=== PATIENT | male | born 1950 | race Caucasian/White ===

== ENCOUNTER 2018-09-10 00:48 | Observation (INO) ==
[2018-09-10 02:04] LABS: Baso % (Auto) 0.5 % (0.0-2.0); Eos % (Auto) 0.1 % (0.0-4.0); Hematocrit 39.1 % (39.0-51.0); Hemoglobin 13.7 gm/dL (13.0-17.0); Lymph # (Auto) 0.6 th/mm3 (1.0-4.8); Lymph % (Auto) 18.8 % (9.0-44.0); Mean Corpuscular Hemoglobin 31.5 pg (27.0-34.0); Mean Platelet Volume 8.3 fL (7.0-11.0); Mono # (Auto) 0.4 th/mm3 (0.0-0.9); Mono % (Auto) 12.7 % (0.0-8.0); Neut # (Auto) 2.3 th/mm3 (1.8-7.7); Neut % (Auto) 67.9 % (16.0-70.0); Platelet Count 134 th/mm3 (150-450); Red Blood Count 4.34 mil/mm3 (4.50-5.90); Red Cell Distribution Width 13.3 % (11.6-17.2); White Blood Count 3.3 th/mm3 (4.0-11.0)
--- NOTE | 2018-09-10 02:10 | ED ---
HPI General Chief complaint: Weakness Stated complaint: gen weakness Time Seen by Provider: 09/10/18 01:32 Source: patient Mode of arrival: ambulatory Limitations: no limitations History of Present Illness HPI Narrative: This 68-year-old man, presents to the emergency department complaining of generalized weakness. He states he went to bed 2 days ago feeling fine and woke up in severe generalized weakness, try just above the belt of the floor, was [id number] for for several hours, has not been able to effectively move around. Struggles to get to the bathroom. Has had incontinence due to not being able to get to the bathroom. Has a history of diabetes and hypertension. Blood sugars been high. No history of previous similar episodes. Works as a cable placer. Was noted to go to work because of the symptoms. Review of systems positive for some is of breath and chest pain, mild. Related Data Home Medications Medication Instructions Recorded Confirmed lisinopril 20 mg PO DAILY 09/10/18 09/10/18 metformin 500 mg PO BID 09/10/18 09/10/18 Allergies Allergy/AdvReac Type Severity Reaction Status Date / Time No Known Allergies Allergy Mild none Uncoded 09/10/18 01:16 Review of Systems ROS: all other systems reviewed are negative [facility] Medical History Medical History Hypertension (Acute) Type 2 diabetes mellitus (Acute) Surgical History Surgical History H/O hernia repair (Acute) Social History Social History Substance History: No History of Abuse Smoking Status: Former smoker How Often Do You Have a Drink Containing Alcohol: Never Immunization History Tetanus Immunization: Unsure Exam Narrative Exam Narrative: GENERAL: Well-appearing 68-year-old man, no acute distress. SKIN: Focused skin assessment warm/dry. HEAD: Atraumatic. Normocephalic. EYES: Pupils equal and round. No scleral icterus. No injection or drainage. ENT: No nasal bleeding or discharge. Mucous membranes pink and moist. NECK: Trachea midline. No JVD. CARDIOVASCULAR: Regular rate and rhythm. No murmur appreciated. RESPIRATORY: No accessory muscle use. Clear to auscultation. Breath sounds equal bilaterally. GASTROINTESTINAL: Abdomen soft, non-tender, nondistended. Hepatic and splenic margins not palpable. MUSCULOSKELETAL: No obvious deformities. No clubbing. No cyanosis. No edema. NEUROLOGICAL: Awake and alert. No obvious cranial nerve deficits. Marked generalized weakness, all 4 extremities. Diminished reflexes throughout. Normal speech. Course Initial Documented Vital Signs Temperature 99.8 F H 09/10/18 01:16 Pulse Rate 96 H 09/10/18 01:16 Respiratory Rate 20 09/10/18 01:16 Blood Pressure 133/83 09/10/18 01:16 Pulse Oximetry 95 09/10/18 01:16 Last Documented Vital Signs Temperature 99.8 F H 09/10/18 01:16 Pulse Rate 104 H 09/10/18 05:15 Respiratory Rate 16 09/10/18 05:15 Blood Pressure 125/74 09/10/18 05:15 Pulse Oximetry 96 09/10/18 05:15 Medical Decision Making MDM Narrative Medical decision making narrative: 68-year-old man, fairly abrupt onset generalized weakness, etiology is unclear. EMS states he was diaphoretic, all the way in route. Etiology could include electrolyte abnormalities, anemia less likely PE or ACS, less likely spinal infarct or intracerebral disease. Will check labs, EKG, chest x-ray to start. Reassess. Likely admission. Medical Screen Exam Complete: Yes Emergency Medical Condition: Yes Lab Data Lab results reviewed: Yes I reviewed the patient's lab results. Result diagrams: 09/10/18 01:50 09/10/18 01:50 Lab Results 09/10/18 09/10/18 09/10/18 Range/Units 01:50 01:50 01:50 WBC 3.3 L (4.0-11.0) th/mm3 RBC 4.34 L (4.50-5.90) mil/mm3 Hgb 13.7 (13.0-17.0) gm/dL Hct 39.1 (39.0-51.0) % MCV 90.0 (80.0-100.0) fL MCH 31.5 (27.0-34.0) pg MCHC 35.0 (32.0-36.0) % RDW 13.3 (11.6-17.2) % Plt Count 134 L (150-450) th/mm3 MPV 8.3 (7.0-11.0) fL Prelim Diff (Auto) Slide review pending Neut % (Auto) 67.9 (16.0-70.0) % Lymph % (Auto) 18.8 (9.0-44.0) % Metcalfe % (Auto) 12.7 H (0.0-8.0) % Eos % (Auto) 0.1 (0.0-4.0) % Baso % (Auto) 0.5 (0.0-2.0) % Neut # (Auto) 2.3 (1.8-7.7) th/mm3 Lymph # (Auto) 0.6 L (1.0-4.8) th/mm3 Metcalfe # (Auto) 0.4 (0.0-0.9) th/mm3 Eos # (Auto) 0.0 (0.0-0.4) th/mm3 Baso # (Auto) 0.0 (0.0-0.2) th/mm3 WBC Differential Manual diff final Seg Neuts % (Manual) 64 (16-70) % Band Neuts % (Manual) 14 H (0-6) % Lymphocytes % (Manual) 10 (9-44) % Atypical Lymphs % (Man) 8 H (0-0) % Monocytes % (Manual) 4 (0-8) % Abs Neuts (Manual) 2.6 (1.8-7.7) th/mm3 Differential Comment . Platelet Estimate Low L (Normal) Platelet Morphology Normal (Normal) Ovalocytes 1+ H (None) Keratocytes Occ H (None) D-Dimer Quant (PE/DVT) (0.00-0.50) mg/L FEU Sodium 134 L (136-145) meq/L Potassium 3.8 (3.5-5.1) meq/L Chloride 98 (98-107) meq/L Carbon Dioxide 26.3 (21.0-32.0) meq/L Anion Gap 10 (5-15) meq/L BUN 17 (7-18) mg/dL Creatinine 1.42 H (0.60-1.30) mg/dL Estimated GFR 50 L (>89) mL/min Random Glucose 247 H (74-106) mg/dL Calcium 7.1 L* (8.5-10.1) mg/dL Calcium Adj for Albumin 8.5 (8.5-10.1) mg/dL Magnesium 1.8 (1.5-2.5) mg/dL Total Bilirubin 1.2 H (0.2-1.0) mg/dL AST 414 H (15-37) U/L ALT 202 H (12-78) U/L Alkaline Phosphatase 98 (45-117) U/L Total Creatine Kinase 4644 H (39-308) U/L CK-MB (CK-2) 3.9 H (0.5-3.6) ng/mL CK-MB (CK-2) % 0.1 (0.0-4.0) % Troponin I 0.10 H (0.02-0.05) ng/mL Total Protein 6.2 L (6.4-8.2) g/dL Albumin 2.3 L (3.4-5.0) g/dL TSH 6.400 H (0.358-3.740) uIU/mL 09/10/18 Range/Units 02:00 WBC (4.0-11.0) th/mm3 RBC (4.50-5.90) mil/mm3 Hgb (13.0-17.0) gm/dL Hct (39.0-51.0) % MCV (80.0-100.0) fL MCH (27.0-34.0) pg MCHC (32.0-36.0) % RDW (11.6-17.2) % Plt Count (150-450) th/mm3 MPV (7.0-11.0) fL Prelim Diff (Auto) Neut % (Auto) (16.0-70.0) % Lymph % (Auto) (9.0-44.0) % Metcalfe % (Auto) (0.0-8.0) % Eos % (Auto) (0.0-4.0) % Baso % (Auto) (0.0-2.0) % Neut # (Auto) (1.8-7.7) th/mm3 Lymph # (Auto) (1.0-4.8) th/mm3 Metcalfe # (Auto) (0.0-0.9) th/mm3 Eos # (Auto) (0.0-0.4) th/mm3 Baso # (Auto) (0.0-0.2) th/mm3 WBC Differential Seg Neuts % (Manual) (16-70) % Band Neuts % (Manual) (0-6) % Lymphocytes % (Manual) (9-44) % Atypical Lymphs % (Man) (0-0) % Monocytes % (Manual) (0-8) % Abs Neuts (Manual) (1.8-7.7) th/mm3 Differential Comment Platelet Estimate (Normal) Platelet Morphology (Normal) Ovalocytes (None) Keratocytes (None) D-Dimer Quant (PE/DVT) 2.33 H (0.00-0.50) mg/L FEU Sodium (136-145) meq/L Potassium (3.5-5.1) meq/L Chloride (98-107) meq/L Carbon Dioxide (21.0-32.0) meq/L Anion Gap (5-15) meq/L BUN (7-18) mg/dL Creatinine (0.60-1.30) mg/dL Estimated GFR (>89) mL/min Random Glucose (74-106) mg/dL Calcium (8.5-10.1) mg/dL Calcium Adj for Albumin (8.5-10.1) mg/dL Magnesium (1.5-2.5) mg/dL Total Bilirubin (0.2-1.0) mg/dL AST (15-37) U/L ALT (12-78) U/L Alkaline Phosphatase (45-117) U/L Total Creatine Kinase (39-308) U/L CK-MB (CK-2) (0.5-3.6) ng/mL CK-MB (CK-2) % (0.0-4.0) % Troponin I (0.02-0.05) ng/mL Total Protein (6.4-8.2) g/dL Albumin (3.4-5.0) g/dL TSH (0.358-3.740) uIU/mL Imaging Data Radiologist's impression: Chest X-Ray 09/10/18 02:04 CONCLUSION: No acute cardiopulmonary process. Chest CTA 09/10/18 02:56 CONCLUSION: No pulmonary embolus. ECG Data Attestation: I personally reviewed and interpreted this ECG as follows: Interpretation: Sinus tachycardia rate of 106, leftward axis, normal intervals, no definite evidence of acute ischemia. Discharge Plan Discharge Disposition Patient Disposition: ED Admit(ED Internal Use Only) Discharge Order Discharge Orders: ED Use Only Admit Order (Routine); Ordered 09/10/18 Ordered By: Juan Kirkpatrick Physicians Team ED Provider: Juan Kirkpatrick Primary Care Provider: [facility] Attending Provider: Davida Chávez Status ED Status: Admitted Observation Patient
[2018-09-10 02:24] LABS: Albumin 2.3 g/dL (3.4-5.0); Calcium 7.1 mg/dL (8.5-10.1); Carbon Dioxide 26.3 meq/L (21.0-32.0); Magnesium 1.8 mg/dL (1.5-2.5); Potassium 3.8 meq/L (3.5-5.1); Total Protein 6.2 g/dL (6.4-8.2); Troponin I 0.1 ng/mL (0.02-0.05)
[2018-09-10 02:34] LABS: Atypical Lymphs 8 % (0-0); Lymphocytes 10 % (9-44); Monocytes 4 % (0-8)
[2018-09-10 02:35] LABS: Ovalocytes 1+; Platelet Morphology Normal (Normal)
--- NOTE | 2018-09-10 03:30 | CT ---
EXAM DATE: 09/10/2018 3:18 AM EST AGE/SEX: 68 years / Male INDICATIONS: Shortness of breath. CLINICAL DATA: This is the patient's initial encounter. Patient reports that signs and symptoms have been present for 2 days and indicates a pain score of 0/10. MEDICAL/SURGICAL HISTORY: Hypertension. Diabetes. None. RADIATION DOSE: 10.66 CTDI (mGy) COMPARISON: No prior exams available for comparison. TECHNIQUE: Volumetric scanning was performed using a multi-row detector CT scanner during bolus infu samantha of 75 ml Omnipaque 350 (iohexol) nonionic water-soluble contrast as a single exam dose. The alirio a was post processed with a variety of visualization algorithms including full volume maximum intensi ty projection and sliding thin slab reformation. Using automated exposure control and adjustment of t he mA and/or kV according to patient size, radiation dose was kept as low as reasonably achievable to obtain optimal diagnostic quality images. DICOM format image data is available electronically for r eview and comparison. FINDINGS: Pulmonary Arteries: No filling defects are seen in the pulmonary arteries out to the subsegmental ve ssels. The left and right pulmonary arteries are normal in diameter. Lung: No infiltrates seen. Effusion: None. Mediastinum: No evidence of mediastinal or hilar adenopathy. Incidental note is made of an azygos fi ssure. This is a normal variant. Other: The axilla is unremarkable. High-density material seen within the gallbladder likely related to gallstones. There is a minimal hiatal hernia. CONCLUSION: No pulmonary embolus. Electronically signed by: Ricki Mina MD Board Certified Radiologist 09/10/2018 3:29 AM EST
--- NOTE | 2018-09-10 03:31 | XR ---
EXAM DATE: 09/10/2018 3:14 AM EST AGE/SEX: 68 years / Male INDICATIONS: Shortness of breath. CLINICAL DATA: This is the patient's initial encounter. Patient reports that signs and symptoms have been present for 1 day and indicates a pain score of 0/10. MEDICAL/SURGICAL HISTORY: Hypertension. Diabetes. None. [place] [facility] [place] 3D[place]. . FINDINGS: The patient is rotated towards the right. The heart size is normal. The lungs are grossly clear. Ther e is an azygos fissure which is a normal variant. CONCLUSION: No acute cardiopulmonary process. Electronically signed by: Ricki Mina MD Board Certified Radiologist 09/10/2018 3:30 AM EST
[2018-09-10] MEDS ORDERED: Bisacodyl 10 MG Supp RECTAL PRN (04:09)
[2018-09-10] MEDS ORDERED: Dextrose 50% in Water 50 ML Vial IV.PUSH PRN (04:09)
[2018-09-10 04:50] LABS: Thyroid Stimulating Hormone 6.4 uIU/mL (0.358-3.740)
[2018-09-10 05:02] LABS: CKMB Percent 0.1 % (0.0-4.0); Creatine Kinase MB 3.9 ng/mL (0.5-3.6)
[2018-09-10] MEDS: Sod Chloride 0.9% Inj 1,000 ML IV.CONT SCH ×3 (05:15→14:37)
[2018-09-10 05:16] VITALS: RESP 16
[2018-09-10 06:04] LABS: Hepatitis A IgM Antibody Reactive (Nonreactive); Hepatitits B Surface Antigen Nonreactive (Nonreactive)
[2018-09-10 08:54] VITALS: O2SAT 95
[2018-09-10] MEDS ORDERED: Senna/Docusate Sodium 8.6/50 MG Tablet PO SCH (09:00)
[2018-09-10 09:07] LABS: Troponin I 0.11 ng/mL (0.02-0.05)
[2018-09-10 09:19] LABS: CKMB Percent 0.1 % (0.0-4.0); Creatine Kinase MB 2.9 ng/mL (0.5-3.6)
--- NOTE | 2018-09-10 09:51 | ECG ---
Date Performed: 09/10/2018 Time Performed: 01:07:26 PTAGE: 68 years EKG: SINUS TACHYCARDIA WITH OCCASIONAL SUPRAVENTRICULAR PREMATURE COMPLEXES PATTERN CONSISTENT W ITH PULMONARY DISEASE INFERIOR MYOCARDIAL INFARCTION ABNORMAL ECG NO PREVIOUS TRACING DOCTOR: Juan Carl Interpretating Date/Time 09/10/2018 09:49:28
[2018-09-10] MEDS: Insulin NovoLIN Regular Correctional Sugar Inj SQ SCH ×2 (10:04→13:31)
--- NOTE | 2018-09-10 10:21 | ECG ---
Date Performed: 09/10/2018 Time Performed: 08:11:16 PTAGE: 68 years EKG: Sinus rhythm PATTERN CONSISTENT WITH PULMONARY DISEASE INFERIOR MYOCARDIAL INFARCTION ABNORMAL ECG PREVIOUS TRACING : 09/10/2018 01.07 DOCTOR: Juan Carl Interpretating Date/Time 09/10/2018 10:21:15
[2018-09-10 11:45] VITALS: BP 105/71; PULSE 97; TEMP 99.2
--- NOTE | 2018-09-10 13:19 | P.HPIM ---
History of Present Illness Service: Hospitalist Primary Care Physician: [facility] Chief Complaint: Upper and lower ext weakness. History of Present Illness: Mr. Ortiz is a 68-year-old with a history of diabetes mellitus, hypertension who presented to the emergency department on 09/10/2018 due to generalized weakness. He fell on the floor near his bed but was unable to get up. He had incontinence due to the fact that he could not get up. Patient denies any chest pain, shortness of breath, fever or chills. Denies any nausea vomiting or diaphoresis. No changes in bowel or bladder habits. Past medical history: Diabetes mellitus, hypertension, hyperlipidemia Past surgical history: Cataract surgery and hernia surgery. Family history: No family history of heart disease or cancer. Social history: Patient denies using tobacco, alcohol or illicit drugs. Review of Systems Review of Systems: all other systems reviewed are negative [facility] Medical History Medical History Hypertension (Acute) Type 2 diabetes mellitus (Acute) Surgical History Surgical History H/O hernia repair (Acute) Social History Social History Substance History: No History of Abuse Second Hand Smoke Exposure: No Smoking Status: Former smoker Tobacco Type: Cigarettes How Often Do You Have a Drink Containing Alcohol: Never Immunization History Tetanus Immunization: Unsure Medications and Allergies Allergies Allergy/AdvReac Type Severity Reaction Status Date / Time No Known Allergies Allergy Mild none Uncoded 09/10/18 01:16 Home Medications Medication Instructions Recorded Confirmed Type lisinopril 20 mg PO DAILY 09/10/18 09/10/18 History metformin 500 mg PO BID 09/10/18 09/10/18 History Active Medications: Active Medications Al Hydroxide/Mg Hydroxide (Milk Of Magnesia Liq) 30 ml PO Q12H PRN PRN Reason: Mild Constipation Bisacodyl (Dulcolax Supp) 10 mg RECTAL DAILY PRN PRN Reason: SEVERE CONSITIPATION Dextrose (D50w Vial) 50 ml IV.PUSH UNSCH PRN PRN Reason: PER HYPOGLYCEMIA PROTOCOL Glucagon (Glucagon Inj) 1 mg OTHER PRN PRN PRN Reason: for Hypoglycemia Protocol Sodium Chloride (Ns Inj) 1,000 mls @ 100 mls/hr IV.CONT .Q10H [facility] Last Admin: 09/10/18 11:44 Dose: 100 mls/hr Insulin Human Regular (Novolin R Correctional Sugar Inj) 0 units SQ ACHS AND 3AM CADENCE; Protocol Last Admin: 09/10/18 10:04 Dose: 3 units Lactulose (Lactulose Liq) 30 ml PO DAILY PRN PRN Reason: SEVERE CONSITIPATION Ondansetron HCl (Zofran Inj) 4 mg IV.PUSH Q6H PRN PRN Reason: NAUSEA OR VOMITING Senna/Docusate Sodium (Shanel-Colace) 1 tab PO BID [facility] Last Admin: 09/10/18 10:04 Dose: Not Given Sennosides (Senokot) 17.2 mg PO Q12H PRN PRN Reason: Moderate Constipation Sodium Chloride (Ns Flush) 2 ml IV.FLUSH BID [facility] [place] Last Admin: 09/10/18 08:27 Dose: Not Given Sodium Chloride (Ns Flush) 2 ml IV.FLUSH PRN PRN PRN Reason: FLUSH AFTER USING IV ACCESS Physical Exam Vital signs: Last Vital Signs Temp 99.2 F 09/10/18 11:44 Pulse 97 H 09/10/18 11:44 Resp 16 09/10/18 11:44 BP 105/71 09/10/18 11:44 Pulse Ox 95 09/10/18 11:44 Intake & Output 09/08/18 09/09/18 09/10/18 09/11/18 06:59 06:59 06:59 06:59 Intake Total 1000 / 1000 Balance 1000 / 1000 Weight 57.606 kg Narrative: GENERAL: This is a well-nourished, well-developed patient, in no apparent distress. SKIN: No rashes, ecchymoses or lesions. Warm and dry. HEAD: Atraumatic. Normocephalic. No temporal or scalp tenderness. EYES: Pupils equal round and reactive. No injection or drainage. ENT: Nose without bleeding, purulent drainage or septal hematoma. Airway patent. NECK: Trachea midline. No lymphadenopathy. Supple, nontender, no meningeal signs. CARDIOVASCULAR: Regular rate and rhythm without murmurs, gallops, or rubs. No JVD. RESPIRATORY: Clear to auscultation. Breath sounds equal bilaterally. No wheezes , rales, or rhonchi. GASTROINTESTINAL: Abdomen soft, non-tender, nondistended. No guarding. MUSCULOSKELETAL: Extremities without clubbing, cyanosis, or edema. NEUROLOGICAL: Awake and alert. Cranial nerves II through XII intact. No focal neurological deficits. Normal speech. Results Labs CBC & Chem 7: 09/10/18 01:50 09/10/18 01:50 Imaging Impressions Chest X-Ray 09/10/18 02:04 CONCLUSION: No acute cardiopulmonary process. Chest CTA 09/10/18 02:56 CONCLUSION: No pulmonary embolus. Caprini VTE Risk Assessment Caprini VTE Risk Assessment: No/Low Risk (score <= 1) Caprini Risk Assessment Model: Point Value = 1 Point Value = 2 Point Value = 3 Point Value = 5 Age 41-60 Minor surgery BMI > 25 kg/m2 Swollen legs Varicose veins or History of unexplained or recurrent spontaneous Oral contraceptives or hormone replacement Sepsis (< 1 month) Serious lung disease, including pneumonia (< 1 month) Abnormal pulmonary function Acute myocardial infarction Congestive heart failure (< 1 month) History of inflammatory bowel disease Medical patient at bed rest Age 61-74 Arthroscopic surgery Major open surgery (> 45 min) Laparoscopic surgery (> 45 min) Malignancy Confined to bed (> 72 hours) Immobilizing plaster cast Central venous access Age >= 75 History of VTE Family history of VTE Factor V Leiden Prothrombin [id number] Lupus anticoagulant Anticardiolipin antibodies Elevated serum homocysteine Heparin-induced thrombocytopenia Other congenital or acquired thrombophilia Stroke (< 1 month) Elective arthroplasty Hip, pelvis, or leg fracture Acute spinal cord injury (< 1 month) Prophylaxis Regimen: Total Risk Factor Score Risk Level Prophylaxis Regimen 0-1 Low Early ambulation 2 Moderate Order ONE of the following: *Sequential Compression Device (SCD) *Heparin 5000 units SQ BID 3-4 Higher Order ONE of the following medications: *Heparin 5000 units SQ TID *Enoxaparin/Lovenox 40 mg SQ daily (WT < 150 kg, CrCl > 30 mL/min) *Enoxaparin/Lovenox 30 mg SQ daily (WT < 150 kg, CrCl > 10-29 mL/min) *Enoxaparin/Lovenox 30 mg SQ BID (WT < 150 kg, CrCl > 30 mL/min) AND/OR *Sequential Compression Device (SCD) 5 or more Highest Order ONE of the following medications: *Heparin 5000 units SQ TID (Preferred with Epidurals) *Enoxaparin/Lovenox 40 mg SQ daily (WT < 150 kg, CrCl > 30 mL/min) *Enoxaparin/Lovenox 30 mg SQ daily (WT < 150 kg, CrCl > 10-29 mL/min) *Enoxaparin/Lovenox 30 mg SQ BID (WT < 150 kg, CrCl > 30 mL/min) AND *Sequential Compression Device (SCD) Assessment and Plan Plan Mr. Ortiz is a 68-year-old with a history of diabetes mellitus, hypertension, hyperlipidemia who presented to the emergency department due to generalized weakness. He fell on the floor and was not able to get up. He denies any chest pain, shortness of breath, fever or chills. No diaphoresis or nausea or vomiting. Generalized weakness No clear etiology. Physical therapy recommends [facility] facility. However patient does not want to go to rehab or even consider home health. Elevated troponins Troponins are 0.1 and 0.11. No chest pain, nausea vomiting or diaphoresis. Cardiac etiology is unlikely. Moreover, patient is not interested in cardiac catheterization. Acute kidney injury Mild rhabdomyolysis Creatinine 1.42 on admission. Baseline unknown. Patient is not aware of any chronic kidney disease. Total CPK was 4644 and subsequently it was 3912. Patient received IV hydration. We will check BMP. If creatinine is improved, patient can likely be discharged home. Full code. Ambulation. H&P: Quality VTE Deep Vein Thrombosis/Pulmonary Embolism Present on Admission: No
[2018-09-10 14:56] LABS: Carbon Dioxide 24.3 meq/L (21.0-32.0); Potassium 3.4 meq/L (3.5-5.1)
[2018-09-10 15:09] LABS: Albumin 2.2 g/dL (3.4-5.0); Calcium-Albumin Corrected 8.4 mg/dL (8.5-10.1); Troponin I 0.08 ng/mL (0.02-0.05)
[2018-09-10 15:27] LABS: CKMB Percent 0.1 % (0.0-4.0); Creatine Kinase MB 2.6 ng/mL (0.5-3.6)
--- NOTE | 2018-09-11 13:34 | ECG ---
Date Performed: 09/10/2018 Time Performed: 14:37:17 PTAGE: 68 years EKG: Sinus rhythm WITH SINUS ARRHYTHMIA PATTERN CONSISTENT WITH PULMONARY DISEASE LEFT ANTERIOR FASCICULAR BLOCK CANNO T EXCLUDE A PRIOR INFERIOR WALL MYOCARDIAL INFARCTION ABNORMAL ECG Since PREVIOUS TRACING , no significant change noted PREVIOUS TRACIN09/10/2018 08.11 DOCTOR: Tereza Thorpe Interpretating Date/Time 09/11/2018 13:32:21
== END 2018-09-10 19:03 | disposition home or self-care (01) ==
LOC: NEDA 00:48 → NEPC 00:48 → NEPHCDU 05:54
PROVIDERS: ADMIT Hospitalist; ATTEND Hospitalist
CPT/HCPCS: 71010; 71045; 71275; 80048; 80053; 80074; 82040; 82330; 82550; 82552; 82948; 82962; 83735; 84443; 84484; 85025; 85379; 93005; 96360; 96361; 96372; 97162; 99285; G0378; G8987; G8988; J7030; Q9967

== ENCOUNTER 2018-09-19 15:54 | Inpatient (IN) ==
--- NOTE | 2018-09-19 17:38 | ED ---
HPI General Chief complaint: Weakness Stated complaint: short of breath Time Seen by Provider: 09/19/18 17:12 History of Present Illness HPI narrative: 68-year-old male with a history of hypertension, hyperlipidemia, diabetes presents to the emergency department for evaluation of generalized weakness and shortness of breath for 10 days. Patient states that he was admitted to our hospital for the same complaints and was discharged to home. States that his symptoms have persisted unchanged. States that [facility] and [facility] come [facility] to the hospital however he put it off until today. He complains of shortness of breath at rest aggravated with exertion. States that he has generalized weakness and fatigue. Denies any fever, chills, nausea, vomiting, diarrhea, abdominal pain, black or bloody stool, numbness or tingling, chest pain, swelling of the extremities, cough or cold symptoms. Denies any history of heart disease, IA, chronic lung disease. Denies tobacco, alcohol or drug use. No other complaints. Related Data Home Medications Medication Instructions Recorded Confirmed lisinopril 20 mg PO DAILY 09/10/18 09/19/18 metformin 500 mg PO BID 09/10/18 09/19/18 Allergies Allergy/AdvReac Type Severity Reaction Status Date / Time No Known Allergies Allergy Mild none Uncoded 09/10/18 01:16 Review of Systems ROS: all other systems reviewed are negative PMFSH Social History Social History Substance History: No History of Abuse Second Hand Smoke Exposure: No Smoking Status: Never smoker Tobacco Type: Cigarettes How Often Do You Have a Drink Containing Alcohol: Never Recent Out of Country Travel within the Last 8 Weeks: No Exam Narrative Exam Narrative: GENERAL: Well-nourished and well-developed patient in no acute distress who is nontoxic appearing. SKIN: Warm and dry. Jaundiced. HEAD: Normocephalic and atraumatic. EYES: No injection, drainage, or hyphema noted. PERRLA. EOMI. ENT: No nasal drainage noted. Oropharynx is clear. NECK: Supple and the trachea is midline. CARDIOVASCULAR: Regular rate and rhythm. RESPIRATORY: Breath sounds are equal bilaterally with no accessory muscle use, wheezing, rhonchi, or crackles. GASTROINTESTINAL: Abdomen is soft, non-tender, and nondistended. MUSCULOSKELETAL: Pitting edema 1+ to bilateral ankles and forearms. No obvious deformities, cyanosis, or ecchymosis is present throughout the upper and lower extremities. Patient has full range of motion without any signs of neurovascular compromise. Distal pulses are 2+ throughout. Strength 5/5 upper and lower extremities and equal bilaterally. NEUROLOGICAL: Awake, alert, and oriented. Normal speech and gait. Cranial nerves are grossly intact. When ambulated several steps patient develops worsening shortness of breath. Course Initial Documented Vital Signs Temperature 98.2 F 09/19/18 16:05 Pulse Rate 79 09/19/18 16:05 Respiratory Rate 18 09/19/18 16:05 Blood Pressure 129/66 09/19/18 16:05 Pulse Oximetry 98 09/19/18 16:05 Last Documented Vital Signs Temperature 98.2 F 09/20/18 04:00 Pulse Rate 80 09/20/18 04:00 Respiratory Rate 17 09/20/18 04:00 Blood Pressure 108/68 09/20/18 04:00 Pulse Oximetry 92 L 09/20/18 05:50 Medical Decision Making PATTI Attestation PATTI supervised visit: Yes Attestation: Patient was not seen by me or presented by advance practitioner, I was available for consult MDM Narrative Medical decision making narrative: 68-year-old male presents to the emergency department for evaluation of shortness of breath on exertion and generalized weakness and fatigue. Patient is afebrile, vital signs are stable. IV access is obtained, labs been drawn and sent. Patient is placed on cardiac telemetry and pulse oximetry monitoring. CBC is unremarkable. Coags show INR is elevated at 1.8. CMP shows severely elevated LFTs with AST 4250, ALT 2690, alk phos 212. Ammonia is within normal limits. Troponin is 0.03, decreased from previous levels. BNP is within normal limits. CT of the abdomen and pelvis with IV contrast shows abdominal wall hernia, right inguinal hernia with herniation of portions of the bladder, cholelithiasis. Gallbladder ultrasound she was very limited visualization of the gallbladder with nonspecific mild gallbladder wall thickening, gallstones noted on CT scan not seen on ultrasound. CBD not need on u/s. Patient does not have signs or symptoms consistent with cholecystitis. Patient had positive Hepatitis A on previous admission, this is fulminant hepatitis and patient will be admitted to hospital service. Dr. Monzon [facility] accepts admission. Medical Screen Exam Complete: Yes Emergency Medical Condition: Yes Differential Diagnosis Differential Diagnosis: CHF versus fluid overload versus IA versus hypothyroidism Lab Data Result diagrams: 09/19/18 17:56 09/19/18 17:56 Lab Results 09/19/18 09/19/18 09/19/18 Range/Units 17:56 17:56 17:56 WBC 4.7 (4.0-11.0) th/mm3 RBC 4.92 (4.50-5.90) mil/mm3 Hgb 15.2 (13.0-17.0) gm/dL Hct 45.1 (39.0-51.0) % MCV 91.8 (80.0-100.0) fL MCH 30.8 (27.0-34.0) pg MCHC 33.6 (32.0-36.0) % RDW 14.7 (11.6-17.2) % Plt Count 334 D (150-450) th/mm3 MPV 9.3 (7.0-11.0) fL Neut % (Auto) 56.1 (16.0-70.0) % Lymph % (Auto) 27.7 (9.0-44.0) % [place] % (Auto) 14.1 H (0.0-8.0) % Eos % (Auto) 0.5 (0.0-4.0) % Baso % (Auto) 1.6 (0.0-2.0) % Neut # (Auto) 2.7 (1.8-7.7) th/mm3 Lymph # (Auto) 1.3 (1.0-4.8) th/mm3 [place] # (Auto) 0.7 (0.0-0.9) th/mm3 Eos # (Auto) 0.0 (0.0-0.4) th/mm3 Baso # (Auto) 0.1 (0.0-0.2) th/mm3 WBC Differential . Differential Comment Auto diff final PT 18.5 H (9.8-11.6) sec INR 1.8 Ratio APTT 51.0 H (23.4-31.7) sec Sodium 134 L (136-145) meq/L Potassium 4.0 (3.5-5.1) meq/L Chloride 97 L (98-107) meq/L Carbon Dioxide 25.8 (21.0-32.0) meq/L Anion Gap 11 (5-15) meq/L BUN 12 (7-18) mg/dL Creatinine 1.29 (0.60-1.30) mg/dL Estimated GFR 55 L (>89) mL/min Random Glucose 121 H (74-106) mg/dL Calcium 7.9 L (8.5-10.1) mg/dL Total Bilirubin 10.1 H (0.2-1.0) mg/dL AST 4250 H (15-37) U/L ALT 2690 H (12-78) U/L Alkaline Phosphatase 212 H (45-117) U/L Ammonia (11-32) mcmol/L Total Creatine Kinase 189 (39-308) U/L CK-MB (CK-2) 4.7 H (0.5-3.6) ng/mL Troponin I 0.03 (0.02-0.05) ng/mL B-Natriuretic Peptide (0-100) pg/mL Total Protein 7.3 (6.4-8.2) g/dL Albumin 2.0 L (3.4-5.0) g/dL 09/19/18 09/19/18 Range/Units 17:56 22:12 WBC (4.0-11.0) th/mm3 RBC (4.50-5.90) mil/mm3 Hgb (13.0-17.0) gm/dL Hct (39.0-51.0) % MCV (80.0-100.0) fL MCH (27.0-34.0) pg MCHC (32.0-36.0) % RDW (11.6-17.2) % Plt Count (150-450) th/mm3 MPV (7.0-11.0) fL Neut % (Auto) (16.0-70.0) % Lymph % (Auto) (9.0-44.0) % [place] % (Auto) (0.0-8.0) % Eos % (Auto) (0.0-4.0) % Baso % (Auto) (0.0-2.0) % Neut # (Auto) (1.8-7.7) th/mm3 Lymph # (Auto) (1.0-4.8) th/mm3 [place] # (Auto) (0.0-0.9) th/mm3 Eos # (Auto) (0.0-0.4) th/mm3 Baso # (Auto) (0.0-0.2) th/mm3 WBC Differential Differential Comment PT (9.8-11.6) sec INR Ratio APTT (23.4-31.7) sec Sodium (136-145) meq/L Potassium (3.5-5.1) meq/L Chloride (98-107) meq/L Carbon Dioxide (21.0-32.0) meq/L Anion Gap (5-15) meq/L BUN (7-18) mg/dL Creatinine (0.60-1.30) mg/dL Estimated GFR (>89) mL/min Random Glucose (74-106) mg/dL Calcium (8.5-10.1) mg/dL Total Bilirubin (0.2-1.0) mg/dL AST (15-37) U/L ALT (12-78) U/L Alkaline Phosphatase (45-117) U/L Ammonia 13 (11-32) mcmol/L Total Creatine Kinase (39-308) U/L CK-MB (CK-2) (0.5-3.6) ng/mL Troponin I (0.02-0.05) ng/mL B-Natriuretic Peptide 27 (0-100) pg/mL Total Protein (6.4-8.2) g/dL Albumin (3.4-5.0) g/dL Imaging Data Radiologist's impression: Chest X-Ray 09/19/18 17:37 CONCLUSION: 1. Mild left lower lung zone airspace consolidation. Cannot exclude pneumonia or aspiration in the appropriate clinical setting. Abdomen/Pelvis CT 09/19/18 20:37 CONCLUSION: 1. Abdominal wall hernia. 2. Right internal hernia with herniation of portions of the bladder. 3. Cholelithiasis. Gallbladder Ultrasound 09/19/18 20:37 CONCLUSION: 1. Examination is limited by patient's body habitus. 2. Very limited visualization of the gallbladder with nonspecific mild gallbladder wall thickening. Gallstone noted on CT exam is not well demonstrated on limited sonographic visualization of the gallbladder. 3. Hepatomegaly with diffuse increased hepatic echogenicity consistent with medical liver disease versus hepatic steatosis. Discharge Plan Discharge Disposition Patient Disposition: ED Admit(ED Internal Use Only) Discharge Condition Condition: Stable Discharge Order Discharge Orders: ED Use Only Admit Order (Routine); Ordered 09/19/18 Ordered By: Anaya Cook Discharge Details Diagnosis: Fulminant hepatitis Physicians Team ED Provider: Louie Santoyo ED Midlevel Provider: Anaya Cook Primary Care Provider: [facility] Attending Provider: Ronny Henley Other Providers: Guadalupe Michel Status ED Status: Left Department Discharge Information Discharge Date/Time: 09/20/18 02:32
[2018-09-19 18:16] LABS: Baso # (Auto) 0.1 th/mm3 (0.0-0.2); Baso % (Auto) 1.6 % (0.0-2.0); Eos % (Auto) 0.5 % (0.0-4.0); Hematocrit 45.1 % (39.0-51.0); Hemoglobin 15.2 gm/dL (13.0-17.0); Lymph # (Auto) 1.3 th/mm3 (1.0-4.8); Lymph % (Auto) 27.7 % (9.0-44.0); Mean Corpuscular HGB Conc 33.6 % (32.0-36.0); Mean Corpuscular Hemoglobin 30.8 pg (27.0-34.0); Mean Corpuscular Volume 91.8 fL (80.0-100.0); Mean Platelet Volume 9.3 fL (7.0-11.0); Mono # (Auto) 0.7 th/mm3 (0.0-0.9); Mono % (Auto) 14.1 % (0.0-8.0); Neut # (Auto) 2.7 th/mm3 (1.8-7.7); Neut % (Auto) 56.1 % (16.0-70.0); Platelet Count 334 th/mm3 (150-450); Red Blood Count 4.92 mil/mm3 (4.50-5.90); Red Cell Distribution Width 14.7 % (11.6-17.2); White Blood Count 4.7 th/mm3 (4.0-11.0)
[2018-09-19 18:29] LABS: INR 1.8 Ratio; Prothrombin Time 18.5 sec (9.8-11.6)
--- NOTE | 2018-09-19 18:40 | XR ---
EXAM DATE: 09/19/2018 6:38 PM EST AGE/SEX: 68 years / Male INDICATIONS: Shortness of breath. CLINICAL DATA: This is the patient's initial encounter. Patient reports that signs and symptoms have been present for 1 day and indicates a pain score of 0/10. MEDICAL/SURGICAL HISTORY: Hypertension. Diabetes. None. COMPARISON: [facility] [place], [place]ST 1V SINGLE AP, 09/10/2018. . FINDINGS: Mild airspace disease in the left lower lung zone. Cardiomediastinal contours are stable. Remainder o f the exam is unchanged. CONCLUSION: 1. Mild left lower lung zone airspace consolidation. Cannot exclude pneumonia or aspiration in the [facility]. Electronically signed by: Altaf Terry MD Board Certified Radiologist 09/19/2018 6:39 PM EST
[2018-09-19 19:02] LABS: Anion Gap 11 meq/L (5-15)
[2018-09-19 19:22] LABS: Alanine Aminotransferase 2690 U/L (12-78); Alkaline Phosphatase 212 U/L (45-117); Aspartate Aminotransferase 4250 U/L (15-37); Blood Urea Nitrogen 12 mg/dL (7-18); Calcium 7.9 mg/dL (8.5-10.1); Carbon Dioxide 25.8 meq/L (21.0-32.0); Chloride 97 meq/L (98-107); Creatine Kinase 189 U/L (39-308); Glomerular Filtration Rate 55 mL/min (>89); Glucose,Random 121 mg/dL (74-106); Sodium 134 meq/L (136-145); Total Protein 7.3 g/dL (6.4-8.2); Troponin I 0.03 ng/mL (0.02-0.05)
[2018-09-19 19:38] LABS: Creatine Kinase MB 4.7 ng/mL (0.5-3.6)
--- NOTE | 2018-09-19 21:44 | CT ---
EXAM DATE: 09/19/2018 9:38 PM EST AGE/SEX: 68 years / Male INDICATIONS: Abdominal Pain CLINICAL DATA: This is the patient's initial encounter. Patient reports that signs and symptoms have been present for 1 day and indicates a pain score of 0/10. MEDICAL/SURGICAL HISTORY: Hypertension. Diabetes. . Hernia Repair ORAL CONTRAST: No oral contrast ingested. RADIATION DOSE: 23.38 CTDI (mGy) COMPARISON: No prior exams available for comparison. TECHNIQUE: Multiple contiguous axial images were obtained through the abdomen and pelvis following b olus infusion of 89ml ml Omnipaque 350 (iohexol) nonionic water-soluble contrast as a single exam d ose. No oral contrast ingested. Using automated exposure control and adjustment of the mA and/or kV according to patient size, radiation dose was kept as low as reasonably achievable to obtain optimal diagnostic quality images. DICOM format image data is available electronically for review and compar kvng. FINDINGS: Abdomen CT: The liver, spleen, pancreas, kidneys, adrenals are unremarkable. There is no evidence for any appreci able pathological adenopathy, free fluid, or bowel obstruction. Gallstones are present within the ga llbladder without signs of cholecystitis for technique. There is abdominal wall hernia towards the ri t lower abdomen with herniation of loops of small bowel and opening of 1.8 cm. There is also hernia tion of the patient's bladder partially into the right inguinal canal. Coronary artery calcifications are seen typically seen with coronary artery disease and clinical correlation and evaluation is sugg ested. Small sliding hiatal hernia may be present. Pelvic CT: There is no evidence for mass, abscess formation, or any significant adenopathy within the pelvis. CONCLUSION: 1. Abdominal wall hernia. 2. Right internal hernia with herniation of portions of the bladder. 3. Cholelithiasis. Electronically signed by: Jessica Alvarez MD Board Certified Radiologist 09/19/2018 9:43 PM EST
--- NOTE | 2018-09-19 22:31 | US ---
EXAM DATE: 09/19/2018 10:25 PM EST AGE/SEX: 68 years / Male INDICATIONS: Increased lab values. CLINICAL DATA: This is the patient's initial encounter. Patient reports that signs and symptoms have been present for 1 day and indicates a pain score of 0/10. MEDICAL/SURGICAL HISTORY: Hypertension. Diabetes mellitus type II. . Hernia repair. COMPARISON: [facility] [place], CT ABDOMEN & PELVIS W CONTRAST, 09/19/2018. . MEASUREMENTS: Liver:__ 22.5 cm. Common Bile Duct:__ Nonvisualized. FINDINGS: Liver: Liver is enlarged with diffusely increased hepatic echogenicity. No significant intrahepatic ductal dilatation. Portal Vein: Hepatopedal flow seen in portal vein. Common Duct: Not visualized. Gallbladder: Gallbladder is insufficiently visualized. There is likely mild diffuse gallbladder wall thickening. Probable stone noted on CT exam is not well demonstrated. Pancreas: Not well visualized. Right Kidney: Normal echogenicity and cortical thickness. No mass or hydronephrosis. Other: None. CONCLUSION: 1. Examination is limited by patient's body habitus. 2. Very limited visualization of the gallbladder with nonspecific mild gallbladder wall thickening. Gallstone noted on CT exam is not well demonstrated on limited sonographic visualization of the gall bladder. 3. Hepatomegaly with diffuse increased hepatic echogenicity consistent with medical liver disease ve rsus hepatic steatosis. Electronically signed by: Altaf Terry MD Board Certified Radiologist 09/19/2018 10:30 PM GLORIA Dennis
[2018-09-19] MEDS ORDERED: Morphine Inj 4 MG/ML Vial IV.PUSH PRN (23:05)
[2018-09-19] MEDS ORDERED: Bisacodyl 10 MG Supp RECTAL PRN (23:05)
[2018-09-19] MEDS ORDERED: Dextrose 50% in Water 50 ML Vial IV.PUSH PRN (23:05)
[2018-09-19] MEDS ORDERED: Naloxone Inj 0.4 MG/ML Vial IV.PUSH PRN (23:05)
--- NOTE | 2018-09-19 23:09 | P.HPIM ---
History of Present Illness Primary Care Physician: [facility] History of Present Illness: This is a 68-year-old male with a PMH of HTN and DM who presented to the ER at the insistence of his son with complaints of generalized weakness, fatigue and decreased PO intake. Recent admit 09/10/18 for similar complaints, s/p fall w/ [facility]/rhabdo, s/p PT eval w/ recommendation for SNF however pt declined, also noted to have elevated trop 0.11, however no chest pain and pt declined cath. States weakness has been ongoing since discharge, "can't eat anything" due to poor appetite and states "I'm grumpier than usual". Denies fever, chills, cough or pain. On arrival, BP 129/66, HR 79 , O2 sat 98% on RA, Afebrile. CBC unremarkable. INR 1.8. Chemistry unremarkable except for GFR 55. Trop 0.03. Total bili 10.1. AST 4250, ALT 2690, ALP 212, previously Total Bili 1.2, AST 414, ALT 202 and ALP 98 on . Denies h/o Hepatitis. CT Abdomen/Pelvis abdominal wall hernia, right internal hernia with herniations of portions of the bladder, cholelithiasis. Gallbladder US limited exam, nonspecific mild gallbladder wall thickening, gallstone on CT not well demonstrated, hepatomegaly with diffuse hepatic echogenicity. Hepatitis A IgM +, no reported nausea/vomiting or abdominal pain. Diagnosis (1) Acute hepatitis: (2) Coagulopathy: (3) Generalized weakness: (4) DM (diabetes mellitus): Inpatient Certification Inpatient Certification: I certify that the inpatient services were ordered in accordance with Medicare regulations governing the order. This includes certification that hospital inpatient services are reasonable and necessary and in the case of services not specified as inpatient-only under 42 CFR 419.22(n), that they are appropriately provided as inpatient services in accordance to with the 2-midnight benchmark under 43 CFR 412.3(e) Estimated Total Length of Stay (Days): 2 Plans for Post Hospital Care: Not yet determined Review of Systems PAST FAMILY HISTORY: Reviewed. No h/o DM or CAD Review of Systems: all other systems reviewed are negative [facility] Social History Social History Substance History: No History of Abuse Second Hand Smoke Exposure: No Smoking Status: Never smoker Tobacco Type: Cigarettes How Often Do You Have a Drink Containing Alcohol: Never Recent Out of Country Travel within the Last 8 Weeks: No Immunization History Tetanus Immunization: Unsure Medications and Allergies Allergies Allergy/AdvReac Type Severity Reaction Status Date / Time No Known Allergies Allergy Mild none Uncoded 09/10/18 01:16 Home Medications Medication Instructions Recorded Confirmed Type lisinopril 20 mg PO DAILY 09/10/18 09/19/18 History metformin 500 mg PO BID 09/10/18 09/19/18 History Physical Exam Vital signs: Vital Signs 09/19/18 16:05 09/19/18 17:37 09/19/18 18:12 Temperature 98.2 F Pulse Rate 79 93 H Respiratory Rate 18 20 Blood Pressure 129/66 109/67 Pulse Oximetry 98 96 95 Pulse Oximetry [Exertion on Room Air] 98 Pulse Oximetry [Resting on Room Air] 95 09/19/18 19:18 Temperature Pulse Rate 93 H Respiratory Rate 17 Blood Pressure 117/63 Pulse Oximetry 97 Pulse Oximetry [Exertion on Room Air] Pulse Oximetry [Resting on Room Air] Intake & Output 09/19/18 09/19/18 09/20/18 06:59 18:59 06:59 Weight 122.47 kg Narrative: PE: GENERAL: Middle-aged white male in no acute distress. SKIN: Focused skin assessment warm and dry. +jaundice HEENT: PERRLA, EOMI. No scleral icterus. +conjunctival pallor. No lid lag or facial droop. CARDIOVASCULAR: Regular rate and rhythm. No obvious murmurs to auscultation. No chest tenderness to palpation. RESPIRATORY: No obvious rhonchi or wheezing. Clear to auscultation. Breath sounds equal bilaterally. GASTROINTESTINAL: Abdomen soft, non-tender, nondistended. BS normal. MUSCULOSKELETAL: Extremities without clubbing, cyanosis, or edema. No obvious deformities. NEUROLOGICAL: Awake, alert and oriented x4. No focal neurologic deficits. Moving both upper and lower extremities spontaneously. PSYCHIATRIC: Appropriate mood and affect. Insight and judgment normal. Results Labs CBC & Chem 7: 09/19/18 17:56 09/19/18 17:56 Imaging Impressions Chest X-Ray 09/19/18 17:37 CONCLUSION: 1. Mild left lower lung zone airspace consolidation. Cannot exclude pneumonia or aspiration in the appropriate clinical setting. Abdomen/Pelvis CT 09/19/18 20:37 CONCLUSION: 1. Abdominal wall hernia. 2. Right internal hernia with herniation of portions of the bladder. 3. Cholelithiasis. Gallbladder Ultrasound 09/19/18 20:37 CONCLUSION: 1. Examination is limited by patient's body habitus. 2. Very limited visualization of the gallbladder with nonspecific mild gallbladder wall thickening. Gallstone noted on CT exam is not well demonstrated on limited sonographic visualization of the gallbladder. 3. Hepatomegaly with diffuse increased hepatic echogenicity consistent with medical liver disease versus hepatic steatosis. Caprini VTE Risk Assessment Caprini VTE Risk Assessment: No/Low Risk (score <= 1) VTE Pharmacological Exception Reason: Coagulopathy,INR elevated Caprini Risk Assessment Model: Point Value = 1 Point Value = 2 Point Value = 3 Point Value = 5 Age 41-60 Minor surgery BMI > 25 kg/m2 Swollen legs Varicose veins or History of unexplained or recurrent spontaneous Oral contraceptives or hormone replacement Sepsis (< 1 month) Serious lung disease, including pneumonia (< 1 month) Abnormal pulmonary function Acute myocardial infarction Congestive heart failure (< 1 month) History of inflammatory bowel disease Medical patient at bed rest Age 61-74 Arthroscopic surgery Major open surgery (> 45 min) Laparoscopic surgery (> 45 min) Malignancy Confined to bed (> 72 hours) Immobilizing plaster cast Central venous access Age >= 75 History of VTE Family history of VTE Factor V Leiden Prothrombin [id number] Lupus anticoagulant Anticardiolipin antibodies Elevated serum homocysteine Heparin-induced thrombocytopenia Other congenital or acquired thrombophilia Stroke (< 1 month) Elective arthroplasty Hip, pelvis, or leg fracture Acute spinal cord injury (< 1 month) Prophylaxis Regimen: Total Risk Factor Score Risk Level Prophylaxis Regimen 0-1 Low Early ambulation 2 Moderate Order ONE of the following: *Sequential Compression Device (SCD) *Heparin 5000 units SQ BID 3-4 Higher Order ONE of the following medications: *Heparin 5000 units SQ TID *Enoxaparin/Lovenox 40 mg SQ daily (WT < 150 kg, CrCl > 30 mL/min) *Enoxaparin/Lovenox 30 mg SQ daily (WT < 150 kg, CrCl > 10-29 mL/min) *Enoxaparin/Lovenox 30 mg SQ BID (WT < 150 kg, CrCl > 30 mL/min) AND/OR *Sequential Compression Device (SCD) 5 or more Highest Order ONE of the following medications: *Heparin 5000 units SQ TID (Preferred with Epidurals) *Enoxaparin/Lovenox 40 mg SQ daily (WT < 150 kg, CrCl > 30 mL/min) *Enoxaparin/Lovenox 30 mg SQ daily (WT < 150 kg, CrCl > 10-29 mL/min) *Enoxaparin/Lovenox 30 mg SQ BID (WT < 150 kg, CrCl > 30 mL/min) AND *Sequential Compression Device (SCD) Assessment and Plan (1) Acute hepatitis: Code(s): B17.9 - Acute viral hepatitis, unspecified Status: Acute (2) Coagulopathy: Code(s): D68.9 - Coagulation defect, unspecified Status: Acute (3) Generalized weakness: Code(s): R53.1 - Weakness Status: Acute (4) DM (diabetes mellitus): Code(s): E11.9 - Type 2 diabetes mellitus without complications Status: Acute Plan A/P: 1. Acute Hepatitis: LFTs significantly elevated from labs on 09/10/18, Hepatitis A IgM reactive, denies nausea/vomiting or abdominal pain. CT Abd/ Pelvis w/ cholelithiasis, US Gallbladder w/ non-specific gallbladder wall thickening, consult GI for further eval/recommendations, no Tylenol or Hepatotoxic agents, repeat labs in am. 2. Coagulopathy: INR 1.8, secondary to above, repeat INR in am, no NSAIDs or anticoagulation due to high risk for bleed. 3. Generalized Weakness: likely due to ongoing poor PO intake w/ acute hepatitis, PT for eval/tx, recent recommendation for SNF but pt declined. 4. DM: Sliding scale w/ Accu-Cheks 5. DVT Prophylaxis: Pharmacologic contraindication due to elevated INR 6. Social work for d/c planning as needed. 7. Case discussed w/ ER physician at length, labs/records/imaging reviewed by me.
[2018-09-20] MEDS: Sod Chloride 0.9% Inj 1,000 ML IV.CONT SCH ×3 (00:05→20:26)
[2018-09-20 08:46] LABS: Hematocrit 38.3 % (39.0-51.0); INR 1.9 Ratio; Mean Corpuscular HGB Conc 33.9 % (32.0-36.0); Mean Corpuscular Hemoglobin 31.6 pg (27.0-34.0); Mean Corpuscular Volume 93.5 fL (80.0-100.0); Mean Platelet Volume 8.7 fL (7.0-11.0); Platelet Count 264 th/mm3 (150-450); Red Cell Distribution Width 14.9 % (11.6-17.2); White Blood Count 3.5 th/mm3 (4.0-11.0)
[2018-09-20] MEDS ORDERED: Senna/Docusate Sodium 8.6/50 MG Tablet PO SCH (09:00)
[2018-09-20 09:21] LABS: Albumin 1.6 g/dL (3.4-5.0); Calcium 7.1 mg/dL (8.5-10.1); Carbon Dioxide 24.7 meq/L (21.0-32.0); Potassium 4.2 meq/L (3.5-5.1); Total Protein 5.9 g/dL (6.4-8.2)
--- NOTE | 2018-09-20 09:29 | P.PN ---
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 There is no report of diarrhea. Only complains of generalized weakness. Physical Exam Vital signs: Vital Signs 09/19/18 16:05 09/19/18 17:37 09/19/18 18:12 Temperature 98.2 F Pulse Rate 79 93 H Respiratory Rate 18 20 Blood Pressure 129/66 109/67 Pulse Oximetry 98 96 95 Pulse Oximetry [Exertion on Room Air] 98 Pulse Oximetry [Resting on Room Air] 95 09/19/18 19:18 09/20/18 00:00 09/20/18 00:47 Temperature Pulse Rate 93 H 69 Respiratory Rate 17 14 Blood Pressure 117/63 119/69 Pulse Oximetry 97 95 95 Pulse Oximetry [Exertion on Room Air] Pulse Oximetry [Resting on Room Air] 09/20/18 04:00 09/20/18 05:50 Temperature 98.2 F Pulse Rate 80 Respiratory Rate 17 Blood Pressure 108/68 Pulse Oximetry 92 L 92 L Pulse Oximetry [Exertion on Room Air] Pulse Oximetry [Resting on Room Air] Intake & Output 09/19/18 09/20/18 09/20/18 18:59 06:59 18:59 Intake Total 0 / 0 Balance 0 / 0 Weight 122.47 kg Intake: Oral 0 / 0 Other: # Voids 0 Narrative: GENERAL: NAD SKIN: Warm and dry. HEAD: Normocephalic. EYES: + scleral icterus. No injection or drainage. NECK: Supple, trachea midline. No JVD or lymphadenopathy. CARDIOVASCULAR: Regular rate and rhythm without murmurs, gallops, or rubs. RESPIRATORY: Breath sounds equal bilaterally. No accessory muscle use. GASTROINTESTINAL: Abdomen soft, non-tender, nondistended. MUSCULOSKELETAL: No cyanosis, or edema. BACK: Nontender without obvious deformity. No CVA tenderness. Results - Labs CBC & Chem 7: 09/20/18 08:05 09/20/18 08:05 Laboratory Results - last 24 hr 09/19/18 09/19/18 09/19/18 17:56 17:56 17:56 WBC 4.7 RBC 4.92 Hgb 15.2 Hct 45.1 MCV 91.8 MCH 30.8 MCHC 33.6 RDW 14.7 Plt Count 334 D MPV 9.3 Prelim Diff (Auto) Neut % (Auto) 56.1 Lymph % (Auto) 27.7 [place] % (Auto) 14.1 H Eos % (Auto) 0.5 Baso % (Auto) 1.6 Neut # (Auto) 2.7 Lymph # (Auto) 1.3 [place] # (Auto) 0.7 Eos # (Auto) 0.0 Baso # (Auto) 0.1 WBC Differential . Differential Comment Auto diff final PT 18.5 H INR 1.8 APTT 51.0 H Sodium 134 L Potassium 4.0 Chloride 97 L Carbon Dioxide 25.8 Anion Gap 11 BUN 12 Creatinine 1.29 Estimated GFR 55 L POC Glucose Random Glucose 121 H Calcium 7.9 L Calcium Adj for Albumin Total Bilirubin 10.1 H AST 4250 H ALT 2690 H Alkaline Phosphatase 212 H Ammonia Total Creatine Kinase 189 CK-MB (CK-2) 4.7 H Troponin I 0.03 B-Natriuretic Peptide Total Protein 7.3 Albumin 2.0 L 09/19/18 09/19/18 09/20/18 17:56 22:12 08:05 WBC 3.5 L RBC 4.10 L Hgb 13.0 D Hct 38.3 L MCV 93.5 MCH 31.6 MCHC 33.9 RDW 14.9 Plt Count 264 MPV 8.7 Prelim Diff (Auto) Manual diff required Neut % (Auto) Lymph % (Auto) [place] % (Auto) Eos % (Auto) Baso % (Auto) Neut # (Auto) Lymph # (Auto) [place] # (Auto) Eos # (Auto) Baso # (Auto) WBC Differential Differential Comment . PT INR APTT Sodium Potassium Chloride Carbon Dioxide Anion Gap BUN Creatinine Estimated GFR POC Glucose Random Glucose Calcium Calcium Adj for Albumin Total Bilirubin AST ALT Alkaline Phosphatase Ammonia 13 Total Creatine Kinase CK-MB (CK-2) Troponin I B-Natriuretic Peptide 27 Total Protein Albumin 09/20/18 09/20/18 09/20/18 08:05 08:05 09:21 WBC RBC Hgb Hct MCV MCH MCHC RDW Plt Count MPV Prelim Diff (Auto) Neut % (Auto) Lymph % (Auto) [place] % (Auto) Eos % (Auto) Baso % (Auto) Neut # (Auto) Lymph # (Auto) [place] # (Auto) Eos # (Auto) Baso # (Auto) WBC Differential Differential Comment PT 19.0 H INR 1.9 APTT Sodium 133 L Potassium 4.2 Chloride 101 Carbon Dioxide 24.7 Anion Gap 7 BUN 15 Creatinine 1.05 Estimated GFR 70 L POC Glucose 100 Random Glucose 81 Calcium 7.1 L* D Calcium Adj for Albumin 9.0 Total Bilirubin 9.1 H AST 3065 H ALT 2056 H Alkaline Phosphatase 165 H Ammonia Total Creatine Kinase CK-MB (CK-2) Troponin I B-Natriuretic Peptide Total Protein 5.9 L D Albumin 1.6 L - Imaging Impressions Chest X-Ray 09/19/18 17:37 CONCLUSION: 1. Mild left lower lung zone airspace consolidation. Cannot exclude pneumonia or aspiration in the appropriate clinical setting. Abdomen/Pelvis CT 09/19/18 20:37 CONCLUSION: 1. Abdominal wall hernia. 2. Right internal hernia with herniation of portions of the bladder. 3. Cholelithiasis. Gallbladder Ultrasound 09/19/18 20:37 CONCLUSION: 1. Examination is limited by patient's body habitus. 2. Very limited visualization of the gallbladder with nonspecific mild gallbladder wall thickening. Gallstone noted on CT exam is not well demonstrated on limited sonographic visualization of the gallbladder. 3. Hepatomegaly with diffuse increased hepatic echogenicity consistent with medical liver disease versus hepatic steatosis. Assessment and Plan - Assessment (1) Acute hepatitis Code(s): B17.9 - Acute viral hepatitis, unspecified Status: Acute (2) Coagulopathy Code(s): D68.9 - Coagulation defect, unspecified Status: Acute (3) Generalized weakness Code(s): R53.1 - Weakness Status: Acute (4) DM (diabetes mellitus) Code(s): E11.9 - Type 2 diabetes mellitus without complications Status: Acute - Plan 68-year-old man with 1. Acute Hepatitis: LFTs significantly elevated from labs on 09/10/18, Hepatitis A IgM reactive, denies nausea/vomiting or abdominal pain. CT Abd/Pelvis w/ cholelithiasis, US Gallbladder w/ non-specific gallbladder wall thickening, consult GI for further eval/recommendations, no Tylenol or Hepatotoxic agents Consider HIDA scan, MRCP Monitor LFTs 2. Coagulopathy: Secondary to above no NSAIDs or anticoagulation due to high risk for bleed. 3. Generalized Weakness: PT for eval/tx, recent recommendation for SNF but pt declined. 4. DM: Continue to hold all oral hyperglycemic agents Currently on sliding scale w/ Accu-Cheks 5. DVT Prophylaxis: Pharmacologic contraindication due to elevated INR
[2018-09-20] MEDS: Insulin NovoLOG Aspart Correctional Sugar Inj SQ SCH ×4 (09:32→20:33)
[2018-09-20 10:27] LABS: Eosinophils 2 % (0-4); Lymphocytes 24 % (9-44); Monocytes 13 % (0-8); Myelocytes 1 % (0-0)
[2018-09-20 10:30] LABS: Platelet Estimate Normal (Normal); Platelet Morphology Normal (Normal); RBC Morphology Normal (Normal)
[2018-09-20 10:31] LABS: Smudge Cells Present
--- NOTE | 2018-09-20 11:12 | P.CONGI ---
History of Present Illness Consult date: 09/20/18 Consult reason: Acute hepatitis Chief complaint: Fulminant Hepatitis History of Present Illness: This is a 68-year-old morbid obese male who came to the hospital on 09/19/2018 with symptoms of generalized weakness and shortness of breath for 10 days patient was initially evaluated and sent home but has come back with the same complaints he denies any nausea or vomiting no dyspepsia or no dysphasia and no abdominal pain no diarrhea and no constipation. Patient denies any family history of colon cancer and states previous colonoscopy x2 in the [facility] but unknown timing or findings except for possibility of polyps. Labs reviewed which show current hemoglobin 15.2, WBC count 4.7, PT/INR 1.9, elevated bilirubin was 10.1, AST 4250, and ALT 2690, alkaline phosphatase 212, ammonia level 13, elevated CK MB. Patient denies any alcohol tobacco or drug use. Patient denies any recent travel and no change in any medications. Gastroenterology was consulted to assist in his symptoms and plan of care for acute hepatitis. He is currently being managed on contact isolation's <Dianna Subramanian - Last Filed: 09/20/18 11:05> Review of Systems All other systems reviewed negative except as stated in HPI <Dianna Subramanian - Last Filed: 09/20/18 11:05> PMFSH - History History Provided By: Patient - Medical History Medical History: Medical History (Last Reviewed 09/19/18 @ 18:02 by Demario Boggs) Hypertension Type 2 diabetes mellitus - Surgical History Surgical History: Surgical History (Last Reviewed 09/19/18 @ 18:02 by Demario Boggs) H/O hernia repair - Tobacco History Second Hand Smoke Exposure: No Tobacco Use In Past 30 Days: No Smoking Status: Never smoker Tobacco Type: Cigarettes - Alcohol History How Often Do You Have a Drink Containing Alcohol: Never - Substance Use History Substance History: No History of Abuse - Travel History Recent Travel Out of the Country Within the Last 8 Weeks: No - Immunization History Tetanus Immunization: Unsure Hx Influenza Vaccine This Season: No <Dianna Subramanian - Last Filed: 09/20/18 11:05> - Medical History Medical History: Medical History (Last Reviewed 09/19/18 @ 18:02 by Demario Boggs) Hypertension Type 2 diabetes mellitus - Surgical History Surgical History: Surgical History (Last Reviewed 09/19/18 @ 18:02 by Demario Boggs) H/O hernia repair <Guadalupe Michel - Last Filed: 09/20/18 11:53> Medications and Allergies Active Medications: Active Medications Al Hydroxide/Mg Hydroxide (Milk Of Magnesia Liq) 30 ml PO Q12H PRN PRN Reason: Mild Constipation Dextrose (D50w Vial) 50 ml IV.PUSH UNSCH PRN PRN Reason: PER HYPOGLYCEMIA PROTOCOL Glucagon (Glucagon Inj) 1 mg OTHER PRN PRN PRN Reason: for Hypoglycemia Protocol Sodium Chloride (Ns Inj) 1,000 mls @ 100 mls/hr IV.CONT .Q10H [facility] Last Admin: 09/20/18 09:32 Dose: 100 mls/hr Insulin Aspart (Novolog Insulin Correctional Sugar Inj) 0 unit SQ ACHS [facility]; Protocol Last Admin: 09/20/18 09:32 Dose: Not Given Morphine Sulfate (Morphine Inj) 4 mg IV.PUSH Q3H PRN PRN Reason: PAIN SCALE 6 TO 10 Naloxone HCl (Narcan Inj) 0.4 mg IV.PUSH UNSCH PRN PRN Reason: SEE LABEL COMMENTS Ondansetron HCl (Zofran Inj) 4 mg IV.PUSH Q6H PRN PRN Reason: NAUSEA OR VOMITING Sodium Chloride (Ns Flush) 2 ml IV.FLUSH BID [facility] Last Admin: 09/20/18 09:32 Dose: Not Given Sodium Chloride (Ns Flush) 2 ml IV.FLUSH PRN PRN PRN Reason: FLUSH AFTER USING IV ACCESS <Dianna Subramanian - Last Filed: 09/20/18 11:05> Active Medications: Active Medications Al Hydroxide/Mg Hydroxide (Milk Of Magnesia Liq) 30 ml PO Q12H PRN PRN Reason: Mild Constipation Dextrose (D50w Vial) 50 ml IV.PUSH UNSCH PRN PRN Reason: PER HYPOGLYCEMIA PROTOCOL Glucagon (Glucagon Inj) 1 mg OTHER PRN PRN PRN Reason: for Hypoglycemia Protocol Sodium Chloride (Ns Inj) 1,000 mls @ 100 mls/hr IV.CONT .Q10H [facility] Last Admin: 09/20/18 09:32 Dose: 100 mls/hr Insulin Aspart (Novolog Insulin Correctional Sugar Inj) 0 unit SQ ACHS [facility]; Protocol Last Admin: 09/20/18 09:32 Dose: Not Given Morphine Sulfate (Morphine Inj) 4 mg IV.PUSH Q3H PRN PRN Reason: PAIN SCALE 6 TO 10 Naloxone HCl (Narcan Inj) 0.4 mg IV.PUSH UNSCH PRN PRN Reason: SEE LABEL COMMENTS Ondansetron HCl (Zofran Inj) 4 mg IV.PUSH Q6H PRN PRN Reason: NAUSEA OR VOMITING Sodium Chloride (Ns Flush) 2 ml IV.FLUSH BID [facility] Last Admin: 09/20/18 09:32 Dose: Not Given Sodium Chloride (Ns Flush) 2 ml IV.FLUSH PRN PRN PRN Reason: FLUSH AFTER USING IV ACCESS <Guadalupe Michel - Last Filed: 09/20/18 11:53> Allergies Allergy/AdvReac Type Severity Reaction Status Date / Time No Known Allergies Allergy Mild none Uncoded 09/10/18 01:16 Home Medications Medication Instructions Recorded Confirmed Type lisinopril 20 mg PO DAILY 09/10/18 09/19/18 History metformin 500 mg PO BID 09/10/18 09/19/18 History Exam Vital signs: Vital Signs 09/19/18 16:05 09/19/18 17:37 09/19/18 18:12 Temperature 98.2 F Pulse Rate 79 93 H Respiratory Rate 18 20 Blood Pressure 129/66 109/67 Pulse Oximetry 98 96 95 Pulse Oximetry [Exertion on Room Air] 98 Pulse Oximetry [Resting on Room Air] 95 09/19/18 19:18 09/20/18 00:00 09/20/18 00:47 Temperature Pulse Rate 93 H 69 Respiratory Rate 17 14 Blood Pressure 117/63 119/69 Pulse Oximetry 97 95 95 Pulse Oximetry [Exertion on Room Air] Pulse Oximetry [Resting on Room Air] 09/20/18 04:00 09/20/18 05:50 Temperature 98.2 F Pulse Rate 80 Respiratory Rate 17 Blood Pressure 108/68 Pulse Oximetry 92 L 92 L Pulse Oximetry [Exertion on Room Air] Pulse Oximetry [Resting on Room Air] Intake & Output 09/19/18 09/20/18 09/20/18 18:59 06:59 18:59 Intake Total 0 / 0 1000 / 1000 Balance 0 / 0 1000 / 1000 Weight 122.47 kg Intake: IV 1000 / 1000 NS Inj 1,000 ML @ 100 mls/hr IV 1000 / 1000 .CONT .Q10H [facility] Rx#:[id number] Oral 0 / 0 Other: # Voids 0 - Constitutional mild distress, morbidly obese, disheveled, agitated (Mild) - Routine HEENT Exam Head: Present: normocephalic ENT: Present: mucous membranes dry - Routine Respiratory Exam Present: decreased breath sounds (Probably secondary to obesity) - Routine Cardiovascular Exam Present: S1, S2 - Routine Abdominal Exam Present: soft (Obese, round,taut, positive bowel sounds, no abdominal pain to light palpation) <Dianna Subramanian - Last Filed: 09/20/18 11:05> Vital signs: Vital Signs 09/19/18 16:05 09/19/18 17:37 09/19/18 18:12 Temperature 98.2 F Pulse Rate 79 93 H Respiratory Rate 18 20 Blood Pressure 129/66 109/67 Pulse Oximetry 98 96 95 Pulse Oximetry [Exertion on Room Air] 98 Pulse Oximetry [Resting on Room Air] 95 09/19/18 19:18 09/20/18 00:00 09/20/18 00:47 Temperature Pulse Rate 93 H 69 Respiratory Rate 17 14 Blood Pressure 117/63 119/69 Pulse Oximetry 97 95 95 Pulse Oximetry [Exertion on Room Air] Pulse Oximetry [Resting on Room Air] 09/20/18 04:00 09/20/18 05:50 09/20/18 11:25 Temperature 98.2 F 98.5 F Pulse Rate 80 74 Respiratory Rate 17 20 Blood Pressure 108/68 145/87 H Pulse Oximetry 92 L 92 L 96 Pulse Oximetry [Exertion on Room Air] Pulse Oximetry [Resting on Room Air] Intake & Output 09/19/18 09/20/18 09/20/18 18:59 06:59 18:59 Intake Total 0 / 0 1000 / 1000 Balance 0 / 0 1000 / 1000 Weight 122.47 kg Intake: IV 1000 / 1000 NS Inj 1,000 ML @ 100 mls/hr IV 1000 / 1000 .CONT .Q10H [facility] Rx#:[id number] Oral 0 / 0 Other: # Voids 0 <Guadalupe Michel - Last Filed: 09/20/18 11:53> Results - Labs CBC & Chem 7: 09/20/18 08:05 09/20/18 08:05 Labs: Laboratory Results - last 24 hr 09/19/18 09/19/18 09/19/18 17:56 17:56 17:56 WBC 4.7 RBC 4.92 Hgb 15.2 Hct 45.1 MCV 91.8 MCH 30.8 MCHC 33.6 RDW 14.7 Plt Count 334 D MPV 9.3 Prelim Diff (Auto) Neut % (Auto) 56.1 Lymph % (Auto) 27.7 [place] % (Auto) 14.1 H Eos % (Auto) 0.5 Baso % (Auto) 1.6 Neut # (Auto) 2.7 Lymph # (Auto) 1.3 [place] # (Auto) 0.7 Eos # (Auto) 0.0 Baso # (Auto) 0.1 WBC Differential . Seg Neuts % (Manual) Band Neuts % (Manual) Lymphocytes % (Manual) Monocytes % (Manual) Eosinophils % (Manual) Basophils % (Manual) Myelocytes % (Man) Abs Neuts (Manual) Differential Comment Auto diff final Smudge Cells Platelet Estimate Platelet Morphology RBC Morphology PT 18.5 H INR 1.8 APTT 51.0 H Sodium 134 L Potassium 4.0 Chloride 97 L Carbon Dioxide 25.8 Anion Gap 11 BUN 12 Creatinine 1.29 Estimated GFR 55 L POC Glucose Random Glucose 121 H Calcium 7.9 L Calcium Adj for Albumin Total Bilirubin 10.1 H AST 4250 H ALT 2690 H Alkaline Phosphatase 212 H Ammonia Total Creatine Kinase 189 CK-MB (CK-2) 4.7 H Troponin I 0.03 B-Natriuretic Peptide Total Protein 7.3 Albumin 2.0 L 09/19/18 09/19/18 09/20/18 17:56 22:12 08:05 WBC 3.5 L RBC 4.10 L Hgb 13.0 D Hct 38.3 L MCV 93.5 MCH 31.6 MCHC 33.9 RDW 14.9 Plt Count 264 MPV 8.7 Prelim Diff (Auto) Manual diff required Neut % (Auto) Lymph % (Auto) [place] % (Auto) Eos % (Auto) Baso % (Auto) Neut # (Auto) Lymph # (Auto) [place] # (Auto) Eos # (Auto) Baso # (Auto) WBC Differential Manual diff final Seg Neuts % (Manual) 54 Band Neuts % (Manual) 5 Lymphocytes % (Manual) 24 Monocytes % (Manual) 13 H Eosinophils % (Manual) 2 Basophils % (Manual) 1 Myelocytes % (Man) 1 H Abs Neuts (Manual) 2.1 Differential Comment . Smudge Cells Present H Platelet Estimate Normal Platelet Morphology Normal RBC Morphology Normal PT INR APTT Sodium Potassium Chloride Carbon Dioxide Anion Gap BUN Creatinine Estimated GFR POC Glucose Random Glucose Calcium Calcium Adj for Albumin Total Bilirubin AST ALT Alkaline Phosphatase Ammonia 13 Total Creatine Kinase CK-MB (CK-2) Troponin I B-Natriuretic Peptide 27 Total Protein Albumin 09/20/18 09/20/18 09/20/18 08:05 08:05 09:21 WBC RBC Hgb Hct MCV MCH MCHC RDW Plt Count MPV Prelim Diff (Auto) Neut % (Auto) Lymph % (Auto) [place] % (Auto) Eos % (Auto) Baso % (Auto) Neut # (Auto) Lymph # (Auto) [place] # (Auto) Eos # (Auto) Baso # (Auto) WBC Differential Seg Neuts % (Manual) Band Neuts % (Manual) Lymphocytes % (Manual) Monocytes % (Manual) Eosinophils % (Manual) Basophils % (Manual) Myelocytes % (Man) Abs Neuts (Manual) Differential Comment Smudge Cells Platelet Estimate Platelet Morphology RBC Morphology PT 19.0 H INR 1.9 APTT Sodium 133 L Potassium 4.2 Chloride 101 Carbon Dioxide 24.7 Anion Gap 7 BUN 15 Creatinine 1.05 Estimated GFR 70 L POC Glucose 100 Random Glucose 81 Calcium 7.1 L* D Calcium Adj for Albumin 9.0 Total Bilirubin 9.1 H AST 3065 H ALT 2056 H Alkaline Phosphatase 165 H Ammonia Total Creatine Kinase CK-MB (CK-2) Troponin I B-Natriuretic Peptide Total Protein 5.9 L D Albumin 1.6 L - Imaging Impressions Chest X-Ray 09/19/18 17:37 CONCLUSION: 1. Mild left lower lung zone airspace consolidation. Cannot exclude pneumonia or aspiration in the appropriate clinical setting. Abdomen/Pelvis CT 09/19/18 20:37 CONCLUSION: 1. Abdominal wall hernia. 2. Right internal hernia with herniation of portions of the bladder. 3. Cholelithiasis. Gallbladder Ultrasound 09/19/18 20:37 CONCLUSION: 1. Examination is limited by patient's body habitus. 2. Very limited visualization of the gallbladder with nonspecific mild gallbladder wall thickening. Gallstone noted on CT exam is not well demonstrated on limited sonographic visualization of the gallbladder. 3. Hepatomegaly with diffuse increased hepatic echogenicity consistent with medical liver disease versus hepatic steatosis. <Dianna Subramanian - Last Filed: 09/20/18 11:05> - Labs CBC & Chem 7: 09/20/18 08:05 09/20/18 08:05 Labs: Laboratory Results - last 24 hr 09/19/18 09/19/18 09/19/18 17:56 17:56 17:56 WBC 4.7 RBC 4.92 Hgb 15.2 Hct 45.1 MCV 91.8 MCH 30.8 MCHC 33.6 RDW 14.7 Plt Count 334 D MPV 9.3 Prelim Diff (Auto) Neut % (Auto) 56.1 Lymph % (Auto) 27.7 [place] % (Auto) 14.1 H Eos % (Auto) 0.5 Baso % (Auto) 1.6 Neut # (Auto) 2.7 Lymph # (Auto) 1.3 [place] # (Auto) 0.7 Eos # (Auto) 0.0 Baso # (Auto) 0.1 WBC Differential . Seg Neuts % (Manual) Band Neuts % (Manual) Lymphocytes % (Manual) Monocytes % (Manual) Eosinophils % (Manual) Basophils % (Manual) Myelocytes % (Man) Abs Neuts (Manual) Differential Comment Auto diff final Smudge Cells Platelet Estimate Platelet Morphology RBC Morphology PT 18.5 H INR 1.8 APTT 51.0 H Sodium 134 L Potassium 4.0 Chloride 97 L Carbon Dioxide 25.8 Anion Gap 11 BUN 12 Creatinine 1.29 Estimated GFR 55 L POC Glucose Random Glucose 121 H Calcium 7.9 L Calcium Adj for Albumin Total Bilirubin 10.1 H AST 4250 H ALT 2690 H Alkaline Phosphatase 212 H Ammonia Total Creatine Kinase 189 CK-MB (CK-2) 4.7 H Troponin I 0.03 B-Natriuretic Peptide Total Protein 7.3 Albumin 2.0 L 09/19/18 09/19/18 09/20/18 17:56 22:12 08:05 WBC 3.5 L RBC 4.10 L Hgb 13.0 D Hct 38.3 L MCV 93.5 MCH 31.6 MCHC 33.9 RDW 14.9 Plt Count 264 MPV 8.7 Prelim Diff (Auto) Manual diff required Neut % (Auto) Lymph % (Auto) [place] % (Auto) Eos % (Auto) Baso % (Auto) Neut # (Auto) Lymph # (Auto) [place] # (Auto) Eos # (Auto) Baso # (Auto) WBC Differential Manual diff final Seg Neuts % (Manual) 54 Band Neuts % (Manual) 5 Lymphocytes % (Manual) 24 Monocytes % (Manual) 13 H Eosinophils % (Manual) 2 Basophils % (Manual) 1 Myelocytes % (Man) 1 H Abs Neuts (Manual) 2.1 Differential Comment . Smudge Cells Present H Platelet Estimate Normal Platelet Morphology Normal RBC Morphology Normal PT INR APTT Sodium Potassium Chloride Carbon Dioxide Anion Gap BUN Creatinine Estimated GFR POC Glucose Random Glucose Calcium Calcium Adj for Albumin Total Bilirubin AST ALT Alkaline Phosphatase Ammonia 13 Total Creatine Kinase CK-MB (CK-2) Troponin I B-Natriuretic Peptide 27 Total Protein Albumin 09/20/18 09/20/18 09/20/18 08:05 08:05 09:21 WBC RBC Hgb Hct MCV MCH MCHC RDW Plt Count MPV Prelim Diff (Auto) Neut % (Auto) Lymph % (Auto) [place] % (Auto) Eos % (Auto) Baso % (Auto) Neut # (Auto) Lymph # (Auto) [place] # (Auto) Eos # (Auto) Baso # (Auto) WBC Differential Seg Neuts % (Manual) Band Neuts % (Manual) Lymphocytes % (Manual) Monocytes % (Manual) Eosinophils % (Manual) Basophils % (Manual) Myelocytes % (Man) Abs Neuts (Manual) Differential Comment Smudge Cells Platelet Estimate Platelet Morphology RBC Morphology PT 19.0 H INR 1.9 APTT Sodium 133 L Potassium 4.2 Chloride 101 Carbon Dioxide 24.7 Anion Gap 7 BUN 15 Creatinine 1.05 Estimated GFR 70 L POC Glucose 100 Random Glucose 81 Calcium 7.1 L* D Calcium Adj for Albumin 9.0 Total Bilirubin 9.1 H AST 3065 H ALT 2056 H Alkaline Phosphatase 165 H Ammonia Total Creatine Kinase CK-MB (CK-2) Troponin I B-Natriuretic Peptide Total Protein 5.9 L D Albumin 1.6 L - Imaging Impressions Chest X-Ray 09/19/18 17:37 CONCLUSION: 1. Mild left lower lung zone airspace consolidation. Cannot exclude pneumonia or aspiration in the appropriate clinical setting. Abdomen/Pelvis CT 09/19/18 20:37 CONCLUSION: 1. Abdominal wall hernia. 2. Right internal hernia with herniation of portions of the bladder. 3. Cholelithiasis. Gallbladder Ultrasound 09/19/18 20:37 CONCLUSION: 1. Examination is limited by patient's body habitus. 2. Very limited visualization of the gallbladder with nonspecific mild gallbladder wall thickening. Gallstone noted on CT exam is not well demonstrated on limited sonographic visualization of the gallbladder. 3. Hepatomegaly with diffuse increased hepatic echogenicity consistent with medical liver disease versus hepatic steatosis. <Guadalupe Michel - Last Filed: 09/20/18 11:53> Assessment and Plan - Plan generalized weakness and shortness of breath for 10 days patient was initially evaluated and sent home but has come back with the same complaints he denies any nausea or vomiting no dyspepsia or no dysphasia and no abdominal pain no diarrhea and no constipation. Patient denies any family history of colon cancer and states previous colonoscopy x2 in the [place] area but unknown timing or findings except for possibility of polyps. Labs reviewed which show current hemoglobin 15.2, WBC count 4.7, PT/INR 1.9, elevated bilirubin was 10.1 , AST 4250, and ALT 2690, alkaline phosphatase 212, ammonia level 13, elevated CK MB. Patient denies any alcohol tobacco or drug use. Patient denies any recent travel and no change in any medications. Gastroenterology was consulted to assist in his symptoms and plan of care for acute hepatitis. He is currently being managed on contact isolation. Patient denies any hematemesis or melena stools Acute hepatitis with symptoms of shortness of breath and generalized weakness approximately 10-14-day onset. Unspecified , Denies any alcohol or illicit drugs or smoking. Denies any change in his medication which is currently lisinopril and metformin. Transaminitis related to #1 History of polyps according to patient previous colonoscopies x2 in the [place] area. No family history of colon cancer Plan Diet as tolerated per attending Full liver workup labs ordered, does not appear to be alcohol related will need to rule out he is hepatocellular disease, Simental , medication, obstructive, versus cancer. Monitor lab Further recommendations to follow Patient was seen per myself and Dr. Michel, note was written on his behalf <Dianna Subramanian - Last Filed: 09/20/18 11:05> - Attending Attestation Seen and examined, workup for cause still pending. Will follow up with you. Thank you for the consult. <Guadalupe Michel - Last Filed: 09/20/18 11:53>
[2018-09-20 13:29] LABS: Albumin 1.7 g/dL (3.4-5.0)
[2018-09-20 13:43] LABS: % Iron Saturation 47.2 % (20-50); Alpha Fetoprotein Tumor Marker 44.8 ng/mL (0.5-8.0); Total Protein 6.2 g/dL (6.4-8.2)
--- NOTE | 2018-09-20 15:04 | ECG ---
Date Performed: 09/19/2018 Time Performed: 16:19:44 PTAGE: 68 years EKG: Sinus rhythm WITH SINUS ARRHYTHMIA LEFT ANTERIOR FASCICULAR BLOCK POSSIBLE ANTERIOR MYOCARDIAL INFARCTION INFERIO R MYOCARDIAL INFARCTION ABNORMAL ECG PREVIOUS TRACING : 09/10/2018 14.37 Since the previous tracing, no significant change noted DOCTOR: Aren Pastor Interpretating Date/Time 09/20/2018 15:03:06
[2018-09-21] MEDS: Sod Chloride 0.9% Inj 1,000 ML IV.CONT SCH ×3 (06:19→20:47)
[2018-09-21 08:24] LABS: Hematocrit 37.7 % (39.0-51.0); Hemoglobin 12.8 gm/dL (13.0-17.0); Mean Corpuscular HGB Conc 33.9 % (32.0-36.0); Mean Corpuscular Hemoglobin 31.2 pg (27.0-34.0); Mean Corpuscular Volume 92.1 fL (80.0-100.0); Mean Platelet Volume 9.1 fL (7.0-11.0); Platelet Count 243 th/mm3 (150-450); Red Blood Count 4.09 mil/mm3 (4.50-5.90); Red Cell Distribution Width 14.6 % (11.6-17.2); White Blood Count 3.6 th/mm3 (4.0-11.0)
[2018-09-21] MEDS: Insulin NovoLOG Aspart Correctional Sugar Inj SQ SCH ×4 (08:42→20:46)
[2018-09-21 09:16] LABS: Albumin 1.6 g/dL (3.4-5.0); Calcium 6.9 mg/dL (8.5-10.1); Carbon Dioxide 26.2 meq/L (21.0-32.0); Potassium 4.1 meq/L (3.5-5.1)
[2018-09-21 09:38] LABS: Eosinophils 2 % (0-4); Lymphocytes 43 % (9-44); Metamyelocytes 1 % (0-1); Monocytes 10 % (0-8)
[2018-09-21 09:45] LABS: Platelet Estimate Normal (Normal); Platelet Morphology Normal (Normal)
--- NOTE | 2018-09-21 13:58 | P.PN ---
Subjective Interval history: up already "had a bath already" tolerating po well, no nausea or vomiting no abdominal pain + tea colored urine voiding well per patient he has been drinking bath tub water he had bathed in for past few days educated him on mode of transmission Physical Exam Vital signs: Vital Signs 09/20/18 18:24 09/20/18 20:00 09/21/18 00:00 Temperature 97.9 F 99.3 F 98.3 F Pulse Rate 77 84 83 Respiratory Rate 17 22 20 Blood Pressure 136/65 115/62 153/88 H Pulse Oximetry 95 95 92 L 09/21/18 01:03 09/21/18 08:00 09/21/18 08:57 Temperature 97.7 F Pulse Rate 80 Respiratory Rate 17 Blood Pressure 127/79 Pulse Oximetry 95 94 L 95 Intake & Output 09/20/18 09/21/18 09/21/18 18:59 06:59 18:59 Intake Total 1240 / 1240 1999 Balance 1240 / 1240 1999 Weight 122.8 kg Intake: IV 1000 / 1000 1999 NS Inj 1,000 ML @ 100 mls/hr IV 1000 / 1000 1999 .CONT .Q10H [facility] Rx#:[id number] Oral 240 / 240 Other: # Voids 2 Weight On Admission 122.47 kg Narrative: awake and alert + mild jaundice +icteresia lungs- clear regular rhythm abdomenflabby soft, good bowel sounds, nontendere xtremties noedema neruoe xam- unremarkable Results - Labs CBC & Chem 7: 09/21/18 06:48 09/21/18 06:48 Laboratory Results - last 24 hr 09/20/18 09/20/18 09/20/18 12:54 17:28 20:32 WBC RBC Hgb Hct MCV MCH MCHC RDW Plt Count MPV Prelim Diff (Auto) WBC Differential Seg Neuts % (Manual) Band Neuts % (Manual) Lymphocytes % (Manual) Monocytes % (Manual) Eosinophils % (Manual) Basophils % (Manual) Metamyelocytes % (Man) Abs Neuts (Manual) Differential Comment Platelet Estimate Platelet Morphology Sodium Potassium Chloride Carbon Dioxide Anion Gap BUN Creatinine Estimated GFR POC Glucose 266 H 192 H Random Glucose Calcium Calcium Adj for Albumin Total Bilirubin AST ALT Alkaline Phosphatase Total Protein Albumin CA 19-9 Antigen 57.5 H 01/09/21/18 09/21/18 06:48 06:48 08:04 WBC 3.6 L RBC 4.09 L Hgb 12.8 L Hct 37.7 L MCV 92.1 MCH 31.2 MCHC 33.9 RDW 14.6 Plt Count 243 MPV 9.1 Prelim Diff (Auto) Manual diff required WBC Differential Manual diff final Seg Neuts % (Manual) 39 Band Neuts % (Manual) 3 Lymphocytes % (Manual) 43 Monocytes % (Manual) 10 H Eosinophils % (Manual) 2 Basophils % (Manual) 2 Metamyelocytes % (Man) 1 Abs Neuts (Manual) 1.5 L Differential Comment . Platelet Estimate Normal Platelet Morphology Normal Sodium 137 Potassium 4.1 Chloride 103 Carbon Dioxide 26.2 Anion Gap 8 BUN 13 Creatinine 1.16 Estimated GFR 63 L POC Glucose 89 Random Glucose 81 Calcium 6.9 L* Calcium Adj for Albumin 8.8 Total Bilirubin 9.3 H AST 1938 H ALT 1678 H Alkaline Phosphatase 149 H Total Protein 6.0 L Albumin 1.6 L CA 19-9 Antigen 09/21/18 12:02 WBC RBC Hgb Hct MCV MCH MCHC RDW Plt Count MPV Prelim Diff (Auto) WBC Differential Seg Neuts % (Manual) Band Neuts % (Manual) Lymphocytes % (Manual) Monocytes % (Manual) Eosinophils % (Manual) Basophils % (Manual) Metamyelocytes % (Man) Abs Neuts (Manual) Differential Comment Platelet Estimate Platelet Morphology Sodium Potassium Chloride Carbon Dioxide Anion Gap BUN Creatinine Estimated GFR POC Glucose 186 H Random Glucose Calcium Calcium Adj for Albumin Total Bilirubin AST ALT Alkaline Phosphatase Total Protein Albumin CA 19-9 Antigen Assessment and Plan - Assessment (1) Acute hepatitis Code(s): B17.9 - Acute viral hepatitis, unspecified Status: Acute (2) Coagulopathy Code(s): D68.9 - Coagulation defect, unspecified Status: Acute (3) Generalized weakness Code(s): R53.1 - Weakness Status: Acute (4) DM (diabetes mellitus) Code(s): E11.9 - Type 2 diabetes mellitus without complications Status: Acute - Plan 68-year-old man with his of DM Acute Hepatitis A Hepatitis A IgM reactive, denies nausea/vomiting or abdominal pain. CT Abd/Pelvis w/ cholelithiasis, US Gallbladder w/ non-specific gallbladder wall thickening, GI service ff along with use will ask nurse to report to Infectious control department d/w supportive management- avoid alcohol- denies alcohol use Coagulopathy: Secondary to above no NSAIDs or anticoagulation due to high risk for bleed. ff INR Generalized Weakness: - no deficits- up and ambulating REcent fall 09/10/2018 with rhabdomyolysis PT daily CK then was 4000 - now -resolved- CK 189 DM: check hemoglobin A1C- states good hypoglycemic awareness change to ADA diet restart home meds- Metformin 500 mg po bid Hypertesnion - 2 gm sodium diet - restart his Lisinorpil 2. 5 mg daily Advise to ff [facility] with [facility] inform him mode of transmission DC home tomorrow if trending down
--- NOTE | 2018-09-21 14:55 | P.PNGI ---
Subjective Interval history: Resting in the bed, minimal conversation no complaints of abdominal pain No obvious nausea or vomiting, liver workup in process <Dianna Subramanian - Last Filed: 09/21/18 14:55> Physical Exam Vital signs: Vital Signs 09/20/18 18:24 09/20/18 20:00 09/21/18 00:00 Temperature 97.9 F 99.3 F 98.3 F Pulse Rate 77 84 83 Respiratory Rate 17 22 20 Blood Pressure 136/65 115/62 153/88 H Pulse Oximetry 95 95 92 L 09/21/18 01:03 09/21/18 08:00 09/21/18 08:57 Temperature 97.7 F Pulse Rate 80 Respiratory Rate 17 Blood Pressure 127/79 Pulse Oximetry 95 94 L 95 09/21/18 12:00 Temperature 98.1 F Pulse Rate 86 Respiratory Rate 17 Blood Pressure 134/83 Pulse Oximetry 94 L Intake & Output 09/20/18 09/21/18 09/21/18 18:59 06:59 18:59 Intake Total 1240 / 1240 1999 Balance 1240 / 1240 1999 Weight 122.8 kg Intake: IV 1000 / 1000 1999 NS Inj 1,000 ML @ 100 mls/hr IV 1000 / 1000 1999 .CONT .Q10H [facility] Rx#:[id number] Oral 240 / 240 Other: # Voids 2 Weight On Admission 122.47 kg - Constitutional no acute distress, morbidly obese, disheveled - Routine HEENT Exam Head: Present: normocephalic ENT: Present: mucous membranes moist (denice) - Routine Neck Exam Present: supple - Routine Respiratory Exam Present: decreased breath sounds (Low volumes, no obvious shortness of breath at rest) - Routine Cardiovascular Exam Present: S1, S2 - Routine Abdominal Exam Present: soft, normoactive bowel sounds (Round, obese,) - Routine Extremities Exam Present: edema (Mild extremity) <Dianna Subramanian - Last Filed: 09/21/18 14:55> Vital signs: Vital Signs 09/20/18 20:00 09/21/18 00:00 09/21/18 01:03 Temperature 99.3 F 98.3 F Pulse Rate 84 83 Respiratory Rate 22 20 Blood Pressure 115/62 153/88 H Pulse Oximetry 95 92 L 95 09/21/18 08:00 09/21/18 08:57 09/21/18 12:00 Temperature 97.7 F 98.1 F Pulse Rate 80 86 Respiratory Rate 17 17 Blood Pressure 127/79 134/83 Pulse Oximetry 94 L 95 94 L 09/21/18 16:00 Temperature 98.1 F Pulse Rate 80 Respiratory Rate 17 Blood Pressure 141/71 H Pulse Oximetry 94 L Intake & Output 09/20/18 09/21/18 09/21/18 18:59 06:59 18:59 Intake Total 1240 / 1240 1999 920 / 920 Balance 1240 / 1240 1999 920 / 920 Weight 122.8 kg Intake: IV 1000 / 1000 1999 700 / 700 NS Inj 1,000 ML @ 100 mls/hr IV 1000 / 1000 1999 700 / 700 .CONT .Q10H [facility] Rx#:[id number] Oral 240 / 240 220 / 220 Other: # Voids 2 # Urine Diapers 2 Date of Last Bowel Movement 09/21/18 Weight On Admission 122.47 kg <Guadalupe Michel - Last Filed: 09/21/18 18:55> Results - Labs CBC & Chem 7: 09/21/18 06:48 09/21/18 06:48 Laboratory Results - last 24 hr 09/20/18 09/20/18 09/21/18 17:28 20:32 06:48 WBC 3.6 L RBC 4.09 L Hgb 12.8 L Hct 37.7 L MCV 92.1 MCH 31.2 MCHC 33.9 RDW 14.6 Plt Count 243 MPV 9.1 Prelim Diff (Auto) Manual diff required WBC Differential Manual diff final Seg Neuts % (Manual) 39 Band Neuts % (Manual) 3 Lymphocytes % (Manual) 43 Monocytes % (Manual) 10 H Eosinophils % (Manual) 2 Basophils % (Manual) 2 Metamyelocytes % (Man) 1 Abs Neuts (Manual) 1.5 L Differential Comment . Platelet Estimate Normal Platelet Morphology Normal Sodium Potassium Chloride Carbon Dioxide Anion Gap BUN Creatinine Estimated GFR POC Glucose 266 H 192 H Random Glucose Calcium Calcium Adj for Albumin Total Bilirubin AST ALT Alkaline Phosphatase Total Protein Albumin 09/21/18 09/21/18 09/21/18 06:48 08:04 12:02 WBC RBC Hgb Hct MCV MCH MCHC RDW Plt Count MPV Prelim Diff (Auto) WBC Differential Seg Neuts % (Manual) Band Neuts % (Manual) Lymphocytes % (Manual) Monocytes % (Manual) Eosinophils % (Manual) Basophils % (Manual) Metamyelocytes % (Man) Abs Neuts (Manual) Differential Comment Platelet Estimate Platelet Morphology Sodium 137 Potassium 4.1 Chloride 103 Carbon Dioxide 26.2 Anion Gap 8 BUN 13 Creatinine 1.16 Estimated GFR 63 L POC Glucose 89 186 H Random Glucose 81 Calcium 6.9 L* Calcium Adj for Albumin 8.8 Total Bilirubin 9.3 H AST 1938 H ALT 1678 H Alkaline Phosphatase 149 H Total Protein 6.0 L Albumin 1.6 L <Dianna Subramanian - Last Filed: 09/21/18 14:55> - Labs CBC & Chem 7: 09/21/18 06:48 09/21/18 06:48 Laboratory Results - last 24 hr 09/20/18 09/21/18 09/21/18 20:32 06:48 06:48 WBC 3.6 L RBC 4.09 L Hgb 12.8 L Hct 37.7 L MCV 92.1 MCH 31.2 MCHC 33.9 RDW 14.6 Plt Count 243 MPV 9.1 Prelim Diff (Auto) Manual diff required WBC Differential Manual diff final Seg Neuts % (Manual) 39 Band Neuts % (Manual) 3 Lymphocytes % (Manual) 43 Monocytes % (Manual) 10 H Eosinophils % (Manual) 2 Basophils % (Manual) 2 Metamyelocytes % (Man) 1 Abs Neuts (Manual) 1.5 L Differential Comment . Platelet Estimate Normal Platelet Morphology Normal Sodium 137 Potassium 4.1 Chloride 103 Carbon Dioxide 26.2 Anion Gap 8 BUN 13 Creatinine 1.16 Estimated GFR 63 L POC Glucose 192 H Random Glucose 81 Calcium 6.9 L* Calcium Adj for Albumin 8.8 Total Bilirubin 9.3 H AST 1938 H ALT 1678 H Alkaline Phosphatase 149 H Total Protein 6.0 L Albumin 1.6 L 09/21/18 09/21/18 09/21/18 08:04 12:02 16:58 WBC RBC Hgb Hct MCV MCH MCHC RDW Plt Count MPV Prelim Diff (Auto) WBC Differential Seg Neuts % (Manual) Band Neuts % (Manual) Lymphocytes % (Manual) Monocytes % (Manual) Eosinophils % (Manual) Basophils % (Manual) Metamyelocytes % (Man) Abs Neuts (Manual) Differential Comment Platelet Estimate Platelet Morphology Sodium Potassium Chloride Carbon Dioxide Anion Gap BUN Creatinine Estimated GFR POC Glucose 89 186 H 168 H Random Glucose Calcium Calcium Adj for Albumin Total Bilirubin AST ALT Alkaline Phosphatase Total Protein Albumin <Guadalupe Michel - Last Filed: 09/21/18 18:55> Assessment and Plan - Plan generalized weakness and shortness of breath for 10 days patient was initially evaluated and sent home but has come back with the same complaints he denies any nausea or vomiting no dyspepsia or no dysphasia and no abdominal pain no diarrhea and no constipation. Patient denies any family history of colon cancer and states previous colonoscopy x2 in the [place] area but unknown timing or findings except for possibility of polyps. Labs reviewed which show current hemoglobin 15.2, WBC count 4.7, PT/INR 1.9, elevated bilirubin was 10.1 , AST 4250, and ALT 2690, alkaline phosphatase 212, ammonia level 13, elevated CK MB. Patient denies any alcohol tobacco or drug use. Patient denies any recent travel and no change in any medications. Gastroenterology was consulted to assist in his symptoms and plan of care for acute hepatitis. He is currently being managed on contact isolation. Patient denies any hematemesis or melena stools Acute hepatitis with symptoms of shortness of breath and generalized weakness approximately 10-14-day onset. Unspecified , Denies any alcohol or illicit drugs or smoking. Denies any change in his medication which is currently lisinopril and metformin. Transaminitis related to #1 History of polyps according to patient previous colonoscopies x2 in the [facility]. No family history of colon cancer 09/21/2018 liver workup is in process CA-19-9 57.5, AFP 44.8, patient is hoping to go home soon and offers very minimal conversation for assessment. No GI complaints of abdominal pain. Labs reviewed LFTs trending down Plan Diet as tolerated low-sodium Full liver workup labs in process Monitor labs Further recommendations to follow, after patient is stable for discharge needs to follow-up in the GI office Patient was seen per myself and Dr. Michel, note was written on his behalf <Dianna Subramanian - Last Filed: 09/21/18 14:55> - Attending Attestation Agree with above assessment and plan. <Guadalupe Michel - Last Filed: 09/21/18 18:55>
[2018-09-22] MEDS: Sod Chloride 0.9% Inj 1,000 ML IV.CONT SCH ×3 (01:03→12:51)
[2018-09-22 05:18] LABS: INR 1.7 Ratio; Prothrombin Time 16.7 sec (9.8-11.6)
[2018-09-22 05:35] LABS: Albumin 1.5 g/dL (3.4-5.0)
[2018-09-22 05:42] LABS: Total Protein 6.2 g/dL (6.4-8.2)
[2018-09-22] MEDS: Insulin NovoLOG Aspart Correctional Sugar Inj SQ SCH ×2 (08:12→12:44)
[2018-09-22] MEDS ORDERED: Lisinopril 5 MG Tablet PO SCH (09:00)
--- NOTE | 2018-09-22 10:14 | P.PNGI ---
Subjective Interval history: Patient is resting in bed, he is in no apparent distress. Patient refuses to answer any my questions stating that he was told that he could go home this morning. He states that she looked through his records to find the rest of the information. Patient is refusing further testing. <TayeLinda reyes - Last Filed: 09/22/18 10:06> Physical Exam Vital signs: Vital Signs 09/21/18 12:00 09/21/18 16:00 09/21/18 20:00 Temperature 98.1 F 98.1 F 97.8 F Pulse Rate 86 80 82 Respiratory Rate 17 17 20 Blood Pressure 134/83 141/71 H 169/91 H Pulse Oximetry 94 L 94 L 93 L 09/22/18 00:00 09/22/18 08:00 09/22/18 09:23 Temperature 98.5 F 97.2 F L Pulse Rate 73 77 Respiratory Rate 22 17 Blood Pressure 117/64 131/83 Pulse Oximetry 90 L 94 L 94 L Intake & Output 09/21/18 09/22/18 09/22/18 18:59 06:59 18:59 Intake Total 920 / 920 2240 / 2240 Output Total 1000 / 1000 Balance 920 / 920 1240 / 1240 Weight 126.1 kg Intake: IV 700 / 700 1999 / 1999 NS Inj 1,000 ML @ 100 mls/hr IV 700 / 700 1999 .CONT .Q10H [facility] Rx#:[id number] Oral 220 / 220 240 / 240 Output: Urine 1000 / 1000 Other: # Urine Diapers 2 Date of Last Bowel Movement 09/21/18 09/21/18 # Bowel Movements 1 - Constitutional no acute distress - Routine HEENT Exam Head: Present: normocephalic, atraumatic Eye: Present: conjunctival icterus - Routine Respiratory Exam Absent: accessory muscle use - Routine Abdominal Exam Present: soft, normoactive bowel sounds, distended. Absent: tenderness - Routine Skin Exam Present: dry, warm, jaundice - Routine Neurological Exam Present: alert, oriented X3 <Linda Monet - Last Filed: 09/22/18 10:06> Vital signs: Vital Signs 09/21/18 16:00 09/21/18 20:00 09/22/18 00:00 Temperature 98.1 F 97.8 F 98.5 F Pulse Rate 80 82 73 Respiratory Rate 17 20 22 Blood Pressure 141/71 H 169/91 H 117/64 Pulse Oximetry 94 L 93 L 90 L 09/22/18 08:00 09/22/18 09:23 09/22/18 12:00 Temperature 97.2 F L 98.0 F Pulse Rate 77 71 Respiratory Rate 17 16 Blood Pressure 131/83 163/88 H Pulse Oximetry 94 L 94 L 94 L Intake & Output 09/21/18 09/22/18 09/22/18 18:59 06:59 18:59 Intake Total 920 / 920 2240 / 2240 703 / 703 Output Total 1000 / 1000 Balance 920 / 920 1240 / 1240 703 / 703 Weight 126.1 kg Intake: IV 700 / 700 1999 703 / 703 NS Inj 1,000 ML @ 100 mls/hr IV 700 / 700 1999 703 / 703 .CONT .Q10H [facility] Rx#:[id number] Oral 220 / 220 240 / 240 Output: Urine 1000 / 1000 Other: # Voids 2 # Urine Diapers 2 Date of Last Bowel Movement 09/21/18 09/21/18 09/21/18 # Bowel Movements 1 <Rashawn Landaverde - Last Filed: 09/22/18 15:31> Results - Labs CBC & Chem 7: 09/21/18 06:48 09/21/18 06:48 Laboratory Results - last 24 hr 09/21/18 09/21/18 09/21/18 12:02 16:58 19:28 PT INR POC Glucose 186 H 168 H 265 H Total Bilirubin Direct Bilirubin Indirect Bilirubin AST ALT Alkaline Phosphatase Total Protein Albumin 09/22/18 09/22/18 09/22/18 04:15 04:15 08:06 PT 16.7 H INR 1.7 POC Glucose 123 H Total Bilirubin 9.4 H Direct Bilirubin 7.3 H Indirect Bilirubin 2.1 H AST 1186 H ALT 1303 H Alkaline Phosphatase 140 H Total Protein 6.2 L Albumin 1.5 L <Linda Monet - Last Filed: 09/22/18 10:06> - Labs CBC & Chem 7: 09/21/18 06:48 09/21/18 06:48 Laboratory Results - last 24 hr 09/21/18 09/21/18 09/22/18 16:58 19:28 04:15 PT INR POC Glucose 168 H 265 H Total Bilirubin 9.4 H Direct Bilirubin 7.3 H Indirect Bilirubin 2.1 H AST 1186 H ALT 1303 H Alkaline Phosphatase 140 H Total Protein 6.2 L Albumin 1.5 L 09/22/18 09/22/18 09/22/18 04:15 08:06 11:59 PT 16.7 H INR 1.7 POC Glucose 123 H 180 H Total Bilirubin Direct Bilirubin Indirect Bilirubin AST ALT Alkaline Phosphatase Total Protein Albumin <Rashawn Landaverde - Last Filed: 09/22/18 15:31> Assessment and Plan - Plan Assessment Transaminitis/Hepatitis Apatient was recently admitted to the hospital on September 10 and found to have positive antibody for hepatitis A. He left AMA and gastroenterology was never consulted. Patient presented back to the emergency department 3 days ago with complaints of generalized weakness and shortness of breath. LFTs are significantly more elevated now than they were during his previous admission. They have been trending down slightly. Immunologic and serologic liver workup has been ordered and is pending at this time. Patient denies any alcohol use. He denies any illicit drug use. Patient refuses to answer my question therefore it is difficult to obtain any further history. According to the record, patient reported that he has been drinking bathwater that he had previously lived in. CT abdomen/pelvis with IV contrast--> abdominal wall hernia. Right internal hernia with herniation of portions of the bladder. Cholelithiasis. Gallbladder ultrasound--> Limited due to body habitus. Very limited visualization of the gallbladder with nonspecific mild gallbladder wall thickening. Gallstone noted. Hepatomegaly with diffuse increased hepatic echogenicity consistent with medical liver disease versus hepatic steatosis. Coagulopathysecondary to above Unable to assess patient's symptoms or history, he refuses to answer any my questions at this time. He is refusing further testing. He states that he was told he would be discharged this morning. Discussed this with patient's attending. At this time our service will sign off, would recommend close following of patient's liver enzymes and coagulopathy. He has also been counseled on transmission of hepatitis A, should avoid drinking bath water that he is bathing Plan Patient is refusing any further testing or to answer any questions Our service will sign off Recommend close monitoring of patient's LFTs and coagulopathy Patient has been advised to follow-up in the office outpatient Has also been counseled on the mode of transmission of hepatitis A This patient has been seen and examined by myself and Dr. Landaverde and this note is written on his behalf. <Linda Monet - Last Filed: 09/22/18 10:06> - Plan Seen and examined, not very cooperative. Insisiting upon going home today. Does not want additional magaña. Please schedule fu with gi in 1 week with repeat LFTs upon discharge. Thank you. <Rashawn Landaverde - Last Filed: 09/22/18 15:31>
--- NOTE | 2018-09-22 13:23 | P.PNIM ---
Subjective Interval history: Follow-up visit acute hepatitis A Patient states he does not wish to undergo anymore testing and wants to go home. Educated patient that it is important for him to be compliant with any tests required by GI in order to fully evaluate the cause of his elevated total bilirubin. Patient expresses frustration over having to remain in the hospital but agrees to be evaluated by GI. He is jaundiced. Physical Exam Vital signs: Vital Signs 09/21/18 16:00 09/21/18 20:00 09/22/18 00:00 Temperature 98.1 F 97.8 F 98.5 F Pulse Rate 80 82 73 Respiratory Rate 17 20 22 Blood Pressure 141/71 H 169/91 H 117/64 Pulse Oximetry 94 L 93 L 90 L 09/22/18 08:00 09/22/18 09:23 Temperature 97.2 F L Pulse Rate 77 Respiratory Rate 17 Blood Pressure 131/83 Pulse Oximetry 94 L 94 L Intake & Output 09/21/18 09/22/18 09/22/18 18:59 06:59 18:59 Intake Total 920 / 920 2240 / 2240 703 / 703 Output Total 1000 / 1000 Balance 920 / 920 1240 / 1240 703 / 703 Weight 126.1 kg Intake: IV 700 / 700 1999 703 / 703 NS Inj 1,000 ML @ 100 mls/hr IV 700 / 700 1999 703 / 703 .CONT .Q10H [facility] Rx#:[id number] Oral 220 / 220 240 / 240 Output: Urine 1000 / 1000 Other: # Urine Diapers 2 Date of Last Bowel Movement 09/21/18 09/21/18 09/21/18 # Bowel Movements 1 Narrative: PE: GENERAL: Middle-aged white male in no acute distress. SKIN: Focused skin assessment warm and dry. +jaundice HEENT: PERRLA, EOMI. + scleral icterus. +conjunctival pallor. No lid lag or facial droop. CARDIOVASCULAR: Regular rate and rhythm. No obvious murmurs to auscultation. No chest tenderness to palpation. RESPIRATORY: No obvious rhonchi or wheezing. Clear to auscultation. Breath sounds equal bilaterally. GASTROINTESTINAL: Abdomen soft, non-tender, nondistended. BS normal. MUSCULOSKELETAL: Extremities without clubbing, cyanosis, or edema. No obvious deformities. NEUROLOGICAL: Awake, alert and oriented x4. No focal neurologic deficits. Moving both upper and lower extremities spontaneously. PSYCHIATRIC: Appropriate mood and affect. Insight and judgment normal. Results Labs CBC & Chem 7: 09/21/18 06:48 09/21/18 06:48 Assessment and Plan Plan 68-year-old man with his of DM Acute Hepatitis A -Hepatitis A IgM reactive, denies nausea/vomiting or abdominal pain. -CT Abd/Pelvis w/ cholelithiasis, US Gallbladder w/ non-specific gallbladder wall thickening, -GI service ff along with use -will ask nurse to report to Infectious control department -d/w supportive management- avoid alcohol- denies alcohol use Coagulopathy: -Secondary to above -no NSAIDs or anticoagulation due to high risk for bleed. -ff INR Generalized Weakness: - no deficits- up and ambulating Recent fall 09/10/2018 with rhabdomyolysis -PT daily -CK then was 4000, now resolved and CK 189 DM: -check hemoglobin A1C- states good hypoglycemic awareness -change to ADA diet -restart home meds- Metformin 500 mg po bid Hypertension - 2 gm sodium diet - restart his Lisinopril 2. 5 mg daily Advise to [facility] with [facility] inform him mode of transmission MDM: self Code: Full GI ppx: not indicated DVT ppx: SCD's Discussed with: RN, GI, patient, supervising MD Dispo: PT to attempt re-eval tomorrow as patient refused Progress Note: Quality VTE Deep Vein Thrombosis/Pulmonary Embolism Present on Admission: No
--- NOTE | 2018-09-22 15:16 | P.DS ---
DS: Providers Date of admission: 09/19/18 23:02 Primary care physician: [facility] Consults: 09/19/18 23:05 Consult to Gastroenterology Routine Consulting Provider: Guadalupe Michel Reason for Consultation: Acute Hepatitis CONSULT FOR AM Notified:: Service Spoke with:: Tawanda Date Notified:: 09/19/18 Time Notified:: 23:37 Ordering Provider: PIYUSH Anticipated date of discharge: 09/22/18 Brief History from admission: This is a 68-year-old male with a PMH of HTN and DM who presented to the ER at the insistence of his son with complaints of generalized weakness, fatigue and decreased PO intake. Recent admit 09/10/18 for similar complaints, s/p fall w/ [facility]/rhabdo, s/p PT eval w/ recommendation for SNF however pt declined, also noted to have elevated trop 0.11, however no chest pain and pt declined cath. States weakness has been ongoing since discharge, "can't eat anything" due to poor appetite and states "I'm grumpier than usual". Denies fever, chills, cough or pain. On arrival, BP 129/66, HR 79 , O2 sat 98% on RA, Afebrile. CBC unremarkable. INR 1.8. Chemistry unremarkable except for GFR 55. Trop 0.03. Total bili 10.1. AST 4250, ALT 2690, ALP 212, previously Total Bili 1.2, AST 414, ALT 202 and ALP 98 on . Denies h/o Hepatitis. CT Abdomen/Pelvis abdominal wall hernia, right internal hernia with herniations of portions of the bladder, cholelithiasis. Gallbladder US limited exam, nonspecific mild gallbladder wall thickening, gallstone on CT not well demonstrated, hepatomegaly with diffuse hepatic echogenicity. Hepatitis A IgM +, no reported nausea/vomiting or abdominal pain. DS: Summary Patient was seen in consultation by GI. Patient denied any history of alcohol use or illicit drug use. He stated he had been drinking his bath water which may have resulted in him latrice hepatitis A. A Full liver work up was ordered. GI noted that hepatocellular disease, BOLANOS, medication, obstructive versus cancer would need to be ruled out. His CA 19-9 resulted as 57.[address] A [address] abdomen/pelvis with IV contrast showed cholelithiasis. A Gallbladder ultrasound was completed and showed a limited visualization of the gallbladder with nonspecific mild gallbladder wall thickening. Gallstones were noted. Also noted was hepatomegaly with diffuse increased hepatic echogenicity consistent with medical liver disease vs hepatic steatosis. Patients liver enzymes started to trend downward. Patient stated that he no longer wants to stay in the hospital and refused to be evaluated by GI or answer any further questions. Supervising physician as well as myself spoke with patient and discussed the importance of completing a full work up which may require an additional day in the hospital. Risks, benefits vs alternatives up to and including of leaving the hospital prematurely were discussed with the patient. He displayed adequate decision making capability. Patient initially agreed to cooperate with GI, however, when Gastroenterology specialist Dr Landaverde went to speak with the patient he once again declined any further work up or testing and insisted on being discharged home. Patient was advised that he would need outpatient follow up with a [facility] in 1 week. He was provided with information for the GI team who had seen him in the hospital or a GI specialist at the [facility] for his pending test results as well as repeat liver function test in 1 week post discharge. He verbalized understanding. On day of discharge patient was hemodynamically stable. He was tolerating PO intake. Time Spent with Patient Total time spent providing and/or coordinating discharge services: Quality: VTE Deep Vein Thrombosis/Pulmonary Embolism Present on Admission: No Exam Narrative Exam Narrative: GENERAL: well developed, well nourished, AAOx3, no acute distress SKIN: Warm and dry, jaundice HEAD: Normocephalic, atraumatic. EYES: Scleral icterus. No injection or drainage. NECK: Supple, trachea midline. No JVD or lymphadenopathy. CARDIOVASCULAR: Regular rate and rhythm without murmurs, gallops, or rubs. RESPIRATORY: Breath sounds equal bilaterally. No accessory muscle use. GASTROINTESTINAL: Abdomen soft, round, non-tender, nondistended. MUSCULOSKELETAL: No cyanosis, or edema. Results Labs on day of discharge: Labs from last 24 hours 09/22/18 09/22/18 09/22/18 11:59 08:06 04:15 PT INR POC Glucose 180 H 123 H Hemoglobin A1c Pending Total Bilirubin Direct Bilirubin Indirect Bilirubin AST ALT Alkaline Phosphatase Total Protein Albumin Stool r-[id number] 09/22/18 09/22/1819 04:15 04:15 19:28 PT 16.7 H INR 1.7 POC Glucose 265 H Hemoglobin A1c Total Bilirubin 9.4 H Direct Bilirubin 7.3 H Indirect Bilirubin 2.1 H AST 1186 H ALT 1303 H Alkaline Phosphatase 140 H Total Protein 6.2 L Albumin 1.5 L Stool g-5-Vtrsyrgaszm 09/21/18 09/20/18 16:58 16:30 PT INR POC Glucose 168 H Hemoglobin A1c Total Bilirubin Direct Bilirubin Indirect Bilirubin AST ALT Alkaline Phosphatase Total Protein Albumin Stool d-6-Cfhjdtfftnn Pending Impressions ITS Impressions Chest X-Ray 09/19/18 17:37 CONCLUSION: 1. Mild left lower lung zone airspace consolidation. Cannot exclude pneumonia or aspiration in the appropriate clinical setting. Abdomen/Pelvis CT 09/19/18 20:37 CONCLUSION: 1. Abdominal wall hernia. 2. Right internal hernia with herniation of portions of the bladder. 3. Cholelithiasis. Gallbladder Ultrasound 09/19/18 20:37 CONCLUSION: 1. Examination is limited by patient's body habitus. 2. Very limited visualization of the gallbladder with nonspecific mild gallbladder wall thickening. Gallstone noted on CT exam is not well demonstrated on limited sonographic visualization of the gallbladder. 3. Hepatomegaly with diffuse increased hepatic echogenicity consistent with medical liver disease versus hepatic steatosis. Discharge Plan Discharge Disposition Patient Disposition: Discharge Home Discharge Condition Condition: Stable Discharge Order Discharge Orders: Discharge Order (Routine); Ordered 09/22/18 Ordered By: Angel Motta Discharge Details Anticipated Discharge Date: 09/22/18 Physicians Team ED Provider: Louie Santoyo ED Midlevel Provider: Anaya Cook Primary Care Provider: [facility] Attending Provider: Ronald Cook Other Providers: Guadalupe Michel Rxs /Orders / Referrals /Forms Prescriptions: Continue metformin 500 mg Tablet 500 mg PO BID RF: 0 lisinopril 20 mg Tablet 20 mg PO DAILY RF: 0 Referrals: [facility] [Outside] - See Instructions (Please follow up with a GI specialist of your choice within 1 week. You will need repeat lab test to evaluate your liver function. ) [facility] [Primary Care Provider] - See Instructions ( Please follow up in 1 week. ) Discharge Instructions Patient Printed Instructions: Hepatitis A (DC), How To Wash Your Hands (GEN) Additional Instructions: Your Health Problems: Goals to Promote Your Health: * To prevent worsening of your condition * To maintain your health at the optimal level Directions to Meet Your Goals: * Take your medications as prescribed * Follow your dietary instruction * Follow activity as directed * Keep your appointments as scheduled * Take your immunizations and boosters as scheduled * If your symptoms worsen call your PCP * If no PCP go to Urgent Care or Emergency Room Smoking is dangerous to your health. Avoid second hand smoke. You may reach the 24-hour crisis hotline for domestic abuse at . Status ED Status: Left Department Discharge Information Discharge Date/Time: 09/22/18 16:34
[2018-09-22 15:37] LABS: Hemoglobin A1c 11.1 % (4.3-6.0)
[2018-09-23 14:11] LABS: Smooth Muscle Total Auto Abs Negative (Negative)
[2018-09-24 19:52] LABS: Ceruloplasmin 23 mg/dL (18-36)
[2018-09-25 03:51] LABS: DS DNA Ab (Crithidia) NEGATIVE (NEGATIVE)
== END 2018-09-22 16:34 | disposition home or self-care (01) | DRG 442 ==
LOC: NEPC 15:54 → NEDA 23:02 → NEPHCDU 09-20 02:05 → N07 09-20 18:05
PROVIDERS: ADMIT Internal Medicine; ATTEND Internal Medicine
DX: Z68.41 Body mass index [BMI] 40.0-44.9, adult; D68.4 Acquired coagulation factor deficiency; K40.90 Unilateral inguinal hernia, without obstruction or gangrene, not specified as recurrent; B15.9 Hepatitis A without hepatic coma; E66.01 Morbid (severe) obesity due to excess calories; E11.65 Type 2 diabetes mellitus with hyperglycemia; K43.9 Ventral hernia without obstruction or gangrene; Z79.84 Long term (current) use of oral hypoglycemic drugs; K80.20 Calculus of gallbladder without cholecystitis without obstruction; E78.5 Hyperlipidemia, unspecified; I10 Essential (primary) hypertension
CPT/HCPCS: 71010; 71045; 74177; 76705; 80053; 80076; 82103; 82105; 82140; 82390; 82550; 82552; 82728; 82948; 82962; 83036; 83520; 83540; 83550; 83880; 84484; 85025; 85610; 85730; 86038; 86039; 86225; 86235; 86255; 86256; 86301; 86431; 93005; 97161; 99285; J1815; J7030; Q9967